=== PATIENT | female | born 1950 | race Caucasian/White ===

== ENCOUNTER → 2016-12-02 | Outpatient (CLI) | payer OTHER, MEDICAID ==
[2015-12-15 18:18] VITALS: BP 149/80
[2016-12-02 16:01] LABS: IRON 56 ug/dL (50-175); TOTAL IRON BINDING CAPACITY 379 ug/dL (250-450); TRANSFERRIN 282 mg/dL (202-364)
[2016-12-04 21:24] LABS: HEPATITIS A ANTIBODY IGM Negative (Negative)
[2016-12-05 06:12] LABS: ANTI-NUCLEAR ANTIBODY TEST None Detected (None Detected); HEPATITIS B CORE IGM Negative (Negative); HEPATITIS B SURFACE ANTIGEN Negative (Negative)
[2016-12-08 06:29] LABS: COPPER LEVEL 114 ug/dL (80-155)
== END ==
LOC: LAB 14:38
PROVIDERS: ATTEND Internal Medicine Gastroenterology
DX: K76.0 Fatty (change of) liver, not elsewhere classified (principal); R11.0 Nausea; R10.13 Epigastric pain
CPT/HCPCS: 36415; 80074; 82103; 82390; 82525; 82728; 83540; 83550; 84466; 86256; 86308

== ENCOUNTER 2016-12-18 07:47 | Day surgery (SDC) | payer OTHER, MEDICAID ==
[2016-12-18] MEDS ORDERED: D5 LR 1000 ML 1,000 ML IV ONE (08:17)
[2016-12-18] MEDS ORDERED: ZOFRAN INJ 4 MG VIAL ONE (10:14)
[2016-12-18] MEDS ORDERED: DIPRIVAN VIAL 20 ML ONE (10:14)
[2016-12-18 10:50] VITALS: BP 127/69
== END 2016-12-18 10:58 | disposition home or self-care (01) ==
LOC: SURG1 07:47
PROVIDERS: ATTEND Internal Medicine Gastroenterology
PROC: 0DB68ZX Excision of Stomach, Via Natural or Artificial Opening Endoscopic, Diagnostic (ICD-10-PCS; principal; 2016-12-18 09:30)
PROC: 0DB88ZX Excision of Small Intestine, Via Natural or Artificial Opening Endoscopic, Diagnostic (ICD-10-PCS; principal; 2016-12-18 09:30)
PROC: 0DJ08ZZ Inspection of Upper Intestinal Tract, Via Natural or Artificial Opening Endoscopic (ICD-10-PCS; principal; 2016-12-18 09:30)
PROC: 0D757ZZ Dilation of Esophagus, Via Natural or Artificial Opening (ICD-10-PCS; principal; 2016-12-18 09:30)
DX: R13.19 Other dysphagia (principal); R10.13 Epigastric pain; K21.9 Gastro-esophageal reflux disease without esophagitis; K22.2 Esophageal obstruction; K44.9 Diaphragmatic hernia without obstruction or gangrene; K25.9 Gastric ulcer, unspecified as acute or chronic, without hemorrhage or perforation
CPT/HCPCS: A4217; J2405; J3490; J7120

== ENCOUNTER 2017-09-09 08:48 | Emergency (ER) | payer OTHER, MEDICAID ==
[2017-09-09 08:50] VITALS: BMI 35.6
[2017-09-09 08:51] VITALS: BP 164/85
[2017-09-09] MEDS ORDERED: TORADOL 60 MG VIAL IM ONE (09:23)
[2017-09-09] MEDS ORDERED: ZOFRAN INJ 4 MG VIAL IM ONE (09:23)
--- NOTE | 2017-09-09 09:26 | DR.HEADACH ---
HPI - Time Seen Time seen: 09:15 - Primary Care Physician Primary Care Physician: ELHAM - HPI Comment HPI Comment: VOMITED TODAY TIMES ONE AT 05:00 AM. TAKING HYDROCORDONE FOR THE PAIN BUT STILL HAVING SEVERE HEADACHE. DENIES SINUS CONGESTION BUT HAVE HORSENESS. NO FEVER. HISTORY MIGRAINE HEADACHE. - Complaint/Symptoms Chief Complaint Doctors Comments: HEADACHE WITH NAUSEA TIMES 2 DAYS. Chief Complaint:: PT. C/O HEADACHE X 2 DAYS AND NAUSEA. Pertinent History: Dizziness/Weakness, Headache, Nausea/Vomitting - Reviewed Nurses Notes Reviewed: Yes - Source History Provided: Patient - Mode of Arrival Mode of Arrival: Ambulatory - Timing Onset of Chief Complaint: 09/07/17 - Duration Since Onset: Constant - Location Headache Location: Temporal - Quality Quality: Throbbing, Sharp - Severity Headache Severity: Moderate - Context Headache Onset Circumstances: Spontaneous History of: Hypertension Prior Work Up: None - Modifying Factors Improves With: Nothing - Associated Signs and Symptoms Associated Symptoms: Nausea, Vomitting PMH - PMH Past Medical History: Yes Past Medical History: Anxiety, Arthritis, Diabetes, Migraines, Headaches, Hypertension Past Surgical History: Yes Surgical History: Abdominal Surgery, Appendectomy, Hysterectomy, Ortho Surgery - Family History History of Family Medical Conditions: Yes Family Medical History: Diabetes Mellitus, Cancer, Heart Failure, Hypertension - Social History Does patient currently use any type of tobacco product: No Have you used tobacco products in the last 12 months: No Type of Tobacco Use: None Does any household member use tobacco: No Alcohol Use: None Do you use any recreational Drugs:: No Lives With: Spouse Lives Where: Home - infectious screening In the last 2 months have you had wt loss of >10#?: NO Have you had fever, night sweats or hemotysis?: No Have you traveled outside the country in the last 6 months?: No Isolation: Standard ROS - Review of Systems Constitutional: No Symptoms Reported Eyes: Photophobia ENTM: No Symptoms Reported (HORSENESS) Respiratoy: No Symptoms Reported Cardiovascular: No Symptoms Reported Gastrointestinal/Abdominal: Nausea, Vomiting Genitourinary: No Symptoms Reported Neurological: Headache Musculoskeletal: No Symptoms Reported Integumentary: No Symptoms Reported Hematologic/Lymphatic: No Symptoms Reported Endocrine: No Symptoms Reported All Other Systems: Reviewed and Negative PE - Vital Signs Vitals: Temperature 97 F Pulse Rate 84 Respiratory Rate 16 Blood Pressure 164/85 O2 Sat by Pulse Oximetry 96 - General Limitations: No Limitations General Appearance: Alert - Head Head Exam: Normal Inspection - Eyes Eye exam: Normal Appearance, PERRL, EOMI. negative: Scleral Icterus, Conjunctival Injection Eyelids: Normal Inspection: Bilateral Pupils: Regular, Round: Bilateral, Reactive: Bilateral Sclera/Conjunctival: Normal Inspection: Bilateral - ENT ENT Exam: Normal External Ear Exam External Ear Exam: Normal External Inspection TM/Canal Exam: Bilateral Normal Nose Exam: Normal Nose Exam Mouth Exam: Normal Inspection Teeth Exam: Dental Caries Throat Exam: Normal Inspection - Neck Neck Exam: Trachea Midline - Chest Chest Inspection: Symmetric Chest Wall Rise - Respiratory Respiratory Exam: Normal Lung Sounds Bilat Respiratory Exam: Bilateral Clear to Auscultation - Cardiovascular Cardiovascular Exam: Regular Rate, Normal Rhythm, Normal Heart Sounds - Abdominal Exam Abdominal Exam: Normal Bowel Sounds, Soft. negative: Tenderness - Extremities Extremities Exam: Normal Inspection - Back Back Exam: Normal Inspection - Neurologic Neurological Exam: Alert, Oriented X3, CN II-XII Intact, Normal Gait, Reflexes Normal. negative: Motor Sensory Deficit - Psychiatric Psychiatric Exam: Anxious - Skin Skin Exam: Normal Color MDM - Differential Diagnosis Differential Diagnosis: Considerations may include:: Migraine, Hypertensive, CVA , Mass Lesion, Sinusitis Course - Treatment Treatment: SEE ORDERS. - Reevaluation 1st: Improved (IM PAIN MED IN ED.) - Education/Counseling Education/Counseling: Patient, Education Educated On: Diagnosis ROR - XRAY XRAY Interpreted by: Radiologist XRAY Findings: REPORT DISCUSS WITH PATIENT. - Diagnosis Discharge Problem: Migraine - Discharge Plan Disposition: 01 HOME, SELF-CARE Condition: Stable - Follow ups/Referrals Follow ups/Referrals: SIDDHARTH LIZARRAGA V [Primary Care Provider] - 2 days - Instructions Instructions: Migraine Headache, [id number] Additional Instructions: RETURN TO ED IF WORSE.
[2017-09-09] MEDS ORDERED: TORADOL 60 MG VIAL ONE (09:29)
[2017-09-09] MEDS ORDERED: ZOFRAN INJ 4 MG VIAL ONE (09:29)
--- NOTE | 2017-09-09 09:53 | CT ---
HISTORY: Right temporal headache Study: CT head without contrast Comparison: 09/13/2013 report Technique: Axial noncontrast images with coronal and sagittal reformats. Dose reduction procedures we re used with mA/kv adjusted for body size. Findings: The ventricles are normal in size shape and position. There is some age-related cortical atrophy pres ent. There is no evidence for recent or remote CVA, hemorrhage, mass lesion, or extra-axial fluid col lection. The visualized sinuses are clear. The calvarium is intact. IMPRESSION: No acute intracranial abnormality Age-related cortical atrophy Reported By:
[2017-09-09] MEDS ORDERED: PHENERGAN INJ 25 MG IM ONE (10:14)
[2017-09-09] MEDS ORDERED: DEMEROL INJ IM ONE (10:14)
[2017-09-09] MEDS ORDERED: DEMEROL INJ ONE (10:23)
[2017-09-09] MEDS ORDERED: PHENERGAN INJ 25 MG ONE (10:23)
== END 2017-09-09 10:46 | disposition home or self-care (01) ==
LOC: ER 09:02
DX: G43.909 Migraine, unspecified, not intractable, without status migrainosus (principal)
CPT/HCPCS: 70450; 96372; 99282; J1885; J2175; J2405; J2550

== ENCOUNTER 2017-12-08 11:50 | Emergency (ER) | payer OTHER, MEDICAID ==
[2017-12-08 11:53] VITALS: BP 129/61; BMI 34.9
[2017-12-08] MEDS ORDERED: DEMEROL INJ IM ONE (12:22)
[2017-12-08] MEDS ORDERED: PHENERGAN INJ 25 MG IM ONE (12:23)
--- NOTE | 2017-12-08 12:24 | DR.HEADACH ---
HPI - Primary Care Physician Primary Care Physician: ELHAM - Complaint/Symptoms Chief Complaint:: PT. C/O MIGRAINE HEADACHE X 2 DAYS WELL NAUSEA. - Source History Provided: Patient - Mode of Arrival Mode of Arrival: Ambulatory - Timing Onset of Chief Complaint: 12/06/17 PMH - PMH Past Medical History: Yes Past Medical History: Anxiety, Arthritis, Diabetes, Migraines, Headaches, Hypertension Past Surgical History: Yes Surgical History: Abdominal Surgery, Appendectomy, Hysterectomy, Ortho Surgery - Family History History of Family Medical Conditions: Yes Family Medical History: Diabetes Mellitus, Cancer, Heart Failure, Hypertension - Social History Does patient currently use any type of tobacco product: No Have you used tobacco products in the last 12 months: No Type of Tobacco Use: None Does any household member use tobacco: No Alcohol Use: None Do you use any recreational Drugs:: No Lives With: Spouse Lives Where: Home - infectious screening In the last 2 months have you had wt loss of >10#?: NO Have you had fever, night sweats or hemotysis?: No Have you traveled outside the country in the last 6 months?: No Isolation: Standard PE - Vital Signs Vitals: Temperature 96.9 F Pulse Rate 80 Respiratory Rate 17 Blood Pressure 129/61 O2 Sat by Pulse Oximetry 99 - Diagnosis Discharge Problem: Migraine Qualifiers: Migraine type: unspecified Status migrainosus presence: without status migrainosus Intractability: intractable Qualified Code(s): G43.919 - Migraine, unspecified, intractable, without status migrainosus - Discharge Plan Condition: Stable - Follow ups/Referrals Follow ups/Referrals: SIDDHARTH LIZARRAGA V [Primary Care Provider] - 2 days - Instructions Instructions: Migraine Headache, [id number] Additional Instructions: RETURN TO ED IF WORSE. CONTINUE MEDS AT HOME.
[2017-12-08] MEDS ORDERED: DEMEROL INJ ONE (12:32)
[2017-12-08] MEDS ORDERED: PHENERGAN INJ 25 MG ONE (12:32)
== END 2017-12-08 12:52 | disposition home or self-care (01) ==
LOC: ER 11:59
DX: G43.919 Migraine, unspecified, intractable, without status migrainosus (principal)
CPT/HCPCS: 96372; 99282; J2175; J2550

== ENCOUNTER 2024-01-25 12:07 | Observation (INO) ==
--- NOTE | 2024-01-25 12:20 | EKG ---
Test Reason : poss stroke Blood Pressure : */* mmHG Vent. Rate : 89 BPM Atrial Rate : 89 BPM P-R Int : 192 ms QRS Dur : 94 ms QT Int : 400 ms P-R-T Axes : 49 -36 38 degrees QTc Int : 486 ms Normal sinus rhythm Left axis deviation Incomplete right bundle branch block Cannot rule out Anterior infarct , age undetermined Abnormal ECG No previous ECGs available Confirmed by Rivera Blanc MD ([id number]) on 01/26/2024 7:10:58 AM Referred By: Confirmed By: Rivera Blanc MD
--- NOTE | 2024-01-25 12:44 | CT ---
EXAM:BRAIN W/O CONHISTORY:POSSIBLE STROKE;COMPARISON:None.TECHNIQUE:Axial non-contrast images of the head were obtained with coronal and sagittal reformats provided.Radiation dose: 817.54 mGy-cm total DLPFINDINGS:No abnormal areas of acute attenuation in the brain parenchyma.Calixto-white differentiation remains intact.No intracranial, extra-axial, fluid collection.No hemorrhage.Periventricular chronic microvascular disease.No mass, mass effect or midline shift.Age related brain parenchymal global atrophy.No ventriculomegaly.No acute fracture.Sinuses are well aerated.Mastoid air cells are well aerated.Globes and intra-orbital contents are unremarkable.IMPRESSION:No acute intracranial abnormality identified.THIS IS AN ELECTRONICALLY VERIFIED FINAL REPORT01/25/2024 12:39 PM - Electronically signed by Ebenezer Sweet MD
--- NOTE | 2024-01-25 12:53 | DR.AMS ---
HPI Time Seen Time Seen by Provider: 01/25/24 12:52 PCP Primary Care Physician: Jayson Lu Complaint Chief Complaint:: Pt states that she has "been feeling funny" since around 10 am today. States that she feels weak and confused. Pt is able to answer questions appropriatley. Pt has bilateral night assistant strength. Pupils are perrla. Otbs is 99 in triage. Pt also states that she had left arm tingling and a left sided headache Self Treatment fo Chief Complaint: none COVID-19 Coronavirus risk:travel/contact w/high risk person: No Has patient experienced Coronavirus symptoms: No Source History Provided: Patient Mode of Arrival Mode of Arrival: Wheelchair Timing Onset of Chief Complaint: 01/25/24 PMH PMH Past Medical History: Yes Past Medical History: Anxiety, Arthritis, Diabetes, Migraines, Headaches, H ypertension and Sleep Apnea Past Surgical History: Yes Surgical History: Abdominal Surgery, Appendectomy, Cholecystectomy, Hysterectomy and Ortho Surgery Family History History of Family Medical Conditions: Yes Family Medical History: Cancer Social History Does patient currently use any type of tobacco product: No Have you used tobacco products in the last 12 months: No Type of Tobacco Use: None Does any household member use tobacco: No Alcohol Use: None Do you use any recreational Drugs:: No Lives With: Alone Lives Where: Home Travel Risk Coronavirus risk:travel/contact w/high risk person: No Has patient experienced Coronavirus symptoms: No Infectious screening In the last 2 months have you had wt loss of >10#?: NO Have you had fever, night sweats or hemotysis?: No Have you traveled outside the country in the last 6 months?: No Isolation: Standard PE Vitals Vital Signs: Temp Pulse Resp BP Pulse Ox O2 Del Method 01/25/24 16:00 91 H 18 97 01/25/24 16:00 16701/25/24 16:00 16701/25/24 16:00 01/25/24 15:52 88 21 96 01/25/24 15:52 188/86 01/25/24 15:52 188/86 01/25/24 15:45 90 24 95 01/25/24 15:30 192/79 01/25/24 15:30 87 21 94 L 01/25/24 15:15 88 25 H 95 01/25/24 15:00 177/77 01/25/24 15:00 89 22 97 01/25/24 14:45 85 23 95 01/25/24 14:30 187/77 01/25/24 14:30 88 21 96 01/25/24 14:15 88 26 H 95 01/25/24 14:03 88 27 H 95 01/25/24 14:03 188/01/25/24 14:03 188/01/25/24 14:03 188/01/25/24 14:00 92 H 26 H 96 01/25/24 14:03 23 01/25/24 13:45 90 23 95 01/25/24 13:31 89 18 95 01/25/24 13:31 175/73 01/25/24 13:30 88 14 96 01/25/24 13:15 87 19 96 01/25/24 13:00 86 20 96 01/25/24 13:00 187/01/25/24 12:45 86 18 96 01/25/24 12:33 85 19 97 01/25/24 12:07 99.1 F 94 H 22 190/86 98 Room Air ROR Labs Reviewed 01/25/24 13:15 01/25/24 13:15 Laboratory: WBC 9.7 X10^3/uL (3.6-10.0) 01/25/24 13:15 RBC 3.53 X10^6/uL (3.5-5.4) 01/25/24 13:15 Hgb 11.6 g/dL (12.0-16.0) L 01/25/24 13:15 Hct 34.5 % (36.0-47.0) L 01/25/24 13:15 MCV 97.9 fL (80.0-100.0) 01/25/24 13:15 MCH 32.9 pg (27.0-34.0) 01/25/24 13:15 MCHC 33.6 g/dL (33.0-35.0) 01/25/24 13:15 RDW 14.4 % (11.6-16.5) 01/25/24 13:15 Plt Count 192 X10^3/uL (150.0-450.0) 01/25/24 13:15 MPV 8.5 fL (7.4-11.0) 01/25/24 13:15 Neut % (Auto) 64.9 % (42.0-75.0) 01/25/24 13:15 Lymph % (Auto) 28.6 % (21.0-51.0) 01/25/24 13:15 [place] % (Auto) 5.6 % (0.0-13.0) 01/25/24 13:15 Eos % (Auto) 0.2 % (0.9-2.9) L 01/25/24 13:15 Baso % (Auto) 0.7 % (0.2-1.0) 01/25/24 13:15 Neut # (Auto) 6.3 x10^3/uL (2.2-4.8) H 01/25/24 13:15 Lymph # (Auto) 2.8 X10^3/uL (1.3-2.9) 01/25/24 13:15 [place] # (Auto) 0.5 x10^3/uL (0.3-0.8) 01/25/24 13:15 Eos # (Auto) 0.0 x10^3/uL (0.0-0.2) 01/25/24 13:15 Baso # (Auto) 0.1 X10^3/uL (0.0-0.1) 01/25/24 13:15 Absolute Nucleated RBC 0.0 /100WBC 01/25/24 13:15 Sodium 142 mmol/L (136-145) 01/25/24 13:15 Corrected Sodium TNP 01/25/24 13:15 Potassium 4.4 mmol/L (3.5-5.1) 01/25/24 13:15 Chloride 105 mmol/L (98-107) 01/25/24 13:15 Carbon Dioxide 29.3 mmol/L (21-32) 01/25/24 13:15 BUN 18 mg/dL (7-18) 01/25/24 13:15 Creatinine 1.80 mg/dL (0.55-1.02) H 01/25/24 13:15 Est GFR (MDRD) Af Amer 36 (>60) L 01/25/24 13:15 Est GFR (MDRD) Non-Af 29 (>60) L 01/25/24 13:15 Glucose 90 mg/dL (65-99) 01/25/24 13:15 Calcium 9.2 mg/dL (8.5-10.1) 01/25/24 13:15 Opioid Opioid Risk Tool Age (Aniceto box if 16-45): No History of Preadolescent Sexual Abuse: No Total: 0 Total Score Risk Category: Low Risk Copyright: Tre CASTELLANO predicting aberrant behaviors Discharge Plan Diagnosis Discharge Problem: Acute CVA (cerebrovascular accident), Brain TIA, Lacunar stroke, Migraine Discharge Plan Patient Disposition: 09 ADMITTED INPATIENT Condition: Stable Discharge Comment: room 203 Orders to Discharge Patient Discharge Orders: Transfer (Routine); Ordered 01/25/24 Ordered By: BRENDA MORENO
[2024-01-25 13:27] LABS: BASOPHILS # (AUTO) 0.1 X10^3/uL (0.0-0.1); BASOPHILS % (AUTO) 0.7 % (0.2-1.0); EOSINOPHILS % (AUTO) 0.2 % (0.9-2.9); HEMATOCRIT 34.5 % (36.0-47.0); HEMOGLOBIN 11.6 g/dL (12.0-16.0); LYMPHOCYTES # (AUTO) 2.8 X10^3/uL (1.3-2.9); LYMPHOCYTES % (AUTO) 28.6 % (21.0-51.0); MEAN CORPUSCULAR HEMOGLOBIN 32.9 pg (27.0-34.0); MEAN CORPUSCULAR HGB CONC 33.6 g/dL (33.0-35.0); MEAN CORPUSCULAR VOLUME 97.9 fL (80.0-100.0); MEAN PLATELET VOLUME 8.5 fL (7.4-11.0); MONOCYTES # (AUTO) 0.5 x10^3/uL (0.3-0.8); MONOCYTES % (AUTO) 5.6 % (0.0-13.0); NEUTROPHILS # (AUTO) 6.3 x10^3/uL (2.2-4.8); NEUTROPHILS % (AUTO) 64.9 % (42.0-75.0); PLATELET COUNT 192 X10^3/uL (150.0-450.0); RED BLOOD COUNT 3.53 X10^6/uL (3.5-5.4); RED CELL DISTRIBUTION WIDTH 14.4 % (11.6-16.5); WHITE BLOOD COUNT 9.7 X10^3/uL (3.6-10.0)
[2024-01-25 13:37] LABS: BLOOD UREA NITROGEN 18 mg/dL (7-18); CALCIUM 9.2 mg/dL (8.5-10.1); CARBON DIOXIDE 29.3 mmol/L (21-32); CHLORIDE 105 mmol/L (98-107); GLUCOSE 90 mg/dL (65-99); POTASSIUM 4.4 mmol/L (3.5-5.1); SODIUM 142 mmol/L (136-145); eGFR NON BLACK RACES 29 (>60)
[2024-01-25] MEDS: TORADOL 15 MG VIAL IVP ONE (14:03)
--- NOTE | 2024-01-25 14:32 | RAD ---
EXAM:CHEST, 1 VIEWHISTORY:altered mental status;COMPARISON:NoneFINDINGS:The cardiomediastinal silhouette is normal in size.No acute airspace disease. No pneumothorax or effusion.No acute osseous abnormality.IMPRESSION:No acute cardiopulmonary disease.THIS IS AN ELECTRONICALLY VERIFIED FINAL REPORT01/25/2024 2:29 PM - Electronically signed by Romaine Ac MD
--- NOTE | 2024-01-25 14:45 | DR.CONSULT ---
CONSULT Consultation for Day of: Date: 01/25/24 Allergies Allergies Allergy/AdvReac Type Severity Reaction Status Date / Time levofloxacin [From Levaquin] Allergy Unknown Verified 08/07/22 08:58 meperidine [From Demerol] AdvReac Mild NAUSEA Verified 08/07/22 08:58 History of Present Illness History of Present Illness: [facility] Patient Name: Camila Liriano Date of : 1950 Identification Number: Date of Service: 01/25/2024 12:16:01 Diagnosis: I63.89 - Cerebrovascular accident (CVA) due to other mechanism ([facility]) Impression: TIA versus pure sensory lacunar stroke versus migraine Patient's symptoms are very mild and nondisabling at this time and for this reason I would not recommend IV thrombolytic therapy I would recommend however a Plavix loading dose of 300 mg once and begin a 21- day course of aspirin 81 mg and Plavix 75 mg daily Statin Patient will need an MRI of the brain without contrast Routine vessel studies with MRA head and neck is reasonable as well for carotid duplex studies Our recommendations are outlined below. Recommendations: Stroke/Telemetry Floor Neuro Checks Bedside Swallow Eval DVT Prophylaxis IV Fluids, Normal Saline Head of Bed 30 Degrees Euglycemia and Avoid Hyperthermia (PRN Acetaminophen) Bolus with Clopidogrel 300 mg bolus x1 and initiate dual antiplatelet therapy with Aspirin 81 mg daily and Clopidogrel 75 mg daily Antihypertensives PRN if Blood pressure is greater than 220/120 or there is a concern for End organ damage/contraindications for permissive HTN. If blood pressure is greater than 220/120 give labetalol PO or IV or Vasotec IV with a goal of 15% reduction in BP during the first 24 hours. Sign Out: Discussed with Emergency Department Provider Advanced Imaging: Advanced Imaging Deferred because: Non-disabling symptoms as verified by the patient; no cortical signs so not consistent with LVO Metrics: Last Known Well: 01/25/2024 10:00:00 [facility] Notification Time: 01/25/2024 12:16:00 Arrival Time: 01/25/2024 12:07:00 Stamp Time: 01/25/2024 12:16:01 Initial Response Time: 01/25/2024 12:17:21 Symptoms: Headache. Initial patient interaction: 01/25/2024 12:19:21 NIHSS Assessment Completed: 01/25/2024 12:22:17 Patient is not a candidate for Thrombolytic. Thrombolytic Medical Decision: 01/25/2024 12:22:21 Patient was not deemed candidate for Thrombolytic because of following reasons: No disabling symptoms. CT head showed no acute hemorrhage or acute core infarct. Primary Provider Notified of Diagnostic Impression and Management Plan on: 01/25/2024 12:36:27 History of Present Illness: Patient is a 73 year old Female. Patient was brought by private transportation with symptoms of Headache. 73-year-old female with a history of prior TIAs with a past medical history significant for hyperlipidemia hypertension review of her records though she does not appear to be on any antiplatelet therapy Last known normal time she states is between 10 and 1030 earlier today when she then developed a left-sided headache and then left-sided numbness and tingling On arrival she still has a dull headache she states no photophobia no phonophobia no nausea vomiting no visual auras preceding the onset of her headache Past Medical History: Hypertension Hyperlipidemia Othere PMH: TIA's Medications: No Anticoagulant use No Antiplatelet use Reviewed EMR for current medications Allergies: Reviewed Social History: Drug Use: No Family History: There is no family history of premature cerebrovascular disease pertinent to this consultation ROS : 14 Points Review of Systems was performed and was negative except mentioned in HPI. Past Surgical History: There Is No Surgical History Contributory To Todays Visit Examination: BP(188/78), Pulse(88), Blood Glucose(303) 1A: Level of Consciousness - Alert; keenly responsive + 0 1B: Ask Month and Age - Both Questions Right + 0 1C: Blink Eyes & Squeeze Hands - Performs Both Tasks + 0 2: Test Horizontal Extraocular Movements - Normal + 0 3: Test Visual Gonzalez - No Visual Loss + 0 4: Test Facial Palsy (Use Grimace if Obtunded) - Normal symmetry + 0 5A: Test Left Arm Motor Drift - No Drift for 10 Seconds + 0 5B: Test Right Arm Motor Drift - No Drift for 10 Seconds + 0 6A: Test Left Leg Motor Drift - No Drift for 5 Seconds + 0 6B: Test Right Leg Motor Drift - No Drift for 5 Seconds + 0 7: Test Limb Ataxia (FNF/Heel-David) - No Ataxia + 0 8: Test Sensation - Mild-Moderate Loss: Less Sharp/More Dull + 1 9: Test Language/Aphasia - Normal; No aphasia + 0 10: Test Dysarthria - Normal + 0 11: Test Extinction/Inattention - No abnormality + 0 NIHSS Score: 1 Pre-Morbid Modified Ajith Scale: 0 Points = No symptoms at all Spoke with : ED DR Patient/Family was informed the Neurology Consult would occur via TeleHealth consult by way of interactive audio and video telecommunications and consented to receiving care in this manner. Patient is being evaluated for possible acute neurologic impairment and high probability of imminent or life-threatening deterioration. I spent total of 35 minutes providing care to this patient, including time for face to face visit via telemedicine, review of medical records, imaging studies and discussion of findings with providers, the patient and/or family. Dr Ebenezer العراقي [facility] For Inpatient follow-up with [facility] physician please call [facility] . This is not an outpatient service. Post hospital discharge, please contact hospital directly. Please call or reconsult our service if there are any clinical or diagnostic changes. Past Medical History Past Medical History: Anxiety, Arthritis, Diabetes, Migraines, Headaches, H ypertension and Sleep Apnea Past Surgical History Surgical History: Abdominal Surgery, Appendectomy, Cholecystectomy, Hysterectomy and Ortho Surgery Family History Family Medical History: Cancer Social History Does patient currently use any type of tobacco product: No Have you used tobacco products in the last 12 months: No Type of Tobacco Use: None Does any household member use tobacco: No Alcohol Use: None Medications Home Medications: levofloxacin [From Levaquin] Allergy (Unknown, Verified 08/07/22 08:58) meperidine [From Demerol] Adverse Reaction (Mild, Verified 08/07/22 08:58) NAUSEA CONTINUE taking the following medications atorvastatin 10 mg tablet 10 mg PO QPM 01/25/24 [History] bupropion HCl 75 mg tablet 75 mg PO BID 01/25/24 [History] celecoxib 200 mg capsule 200 mg PO QDAY 01/25/24 [History] dapagliflozin propanediol 10 mg tablet (Farxiga) 10 mg PO QDAY 01/25/24 [History] escitalopram oxalate 10 mg tablet 10 mg PO QPM 01/25/24 [History] finerenone 10 mg tablet (Kerendia) 10 mg QDAY 01/25/24 [History] fluconazole 150 mg tablet 150 mg PO QWEEK 01/25/24 [History] hydroxychloroquine 200 mg tablet 200 mg PO QDAY 01/25/24 [History] metoclopramide HCl 10 mg tablet 10 mg PO QID 01/25/24 [History] mirtazapine 7.5 mg tablet 7.5 mg PO QHS 01/25/24 [History] olmesartan 40 mg tablet 40 mg PO QDAY 01/25/24 [History] Physical Exam Vital Signs: Vital Signs Temperature 99.1 F Pulse Rate 88 Pulse Rate 88 Pulse Rate 92 Pulse Rate 90 Pulse Rate 89 Pulse Rate 88 Pulse Rate 87 Pulse Rate 86 Pulse Rate 86 Pulse Rate 85 Pulse Rate 94 Respiratory Rate 26 Respiratory Rate 27 Respiratory Rate 23 Respiratory Rate 26 Respiratory Rate 23 Respiratory Rate 18 Respiratory Rate 14 Respiratory Rate 19 Respiratory Rate 20 Respiratory Rate 18 Respiratory Rate 19 Respiratory Rate 22 Blood Pressure 188/78 Blood Pressure 188/78 Blood Pressure 188/78 Blood Pressure 175/73 Blood Pressure 187/76 Blood Pressure 190/86 O2 Sat by Pulse Oximetry 95 O2 Sat by Pulse Oximetry 95 O2 Sat by Pulse Oximetry 96 O2 Sat by Pulse Oximetry 95 O2 Sat by Pulse Oximetry 95 O2 Sat by Pulse Oximetry 96 O2 Sat by Pulse Oximetry 96 O2 Sat by Pulse Oximetry 96 O2 Sat by Pulse Oximetry 96 O2 Sat by Pulse Oximetry 97 O2 Sat by Pulse Oximetry 98
[2024-01-25] MEDS: PLAVIX PO ONE (15:35)
[2024-01-25] MEDS: APRESOLINE INJ 20 MG VIAL IVP ONE (15:54)
[2024-01-25] MEDS: TORADOL 15 MG VIAL ONE (16:40)
[2024-01-25] MEDS: NS 1,000 ML IV 1,000 ML IV SCH (17:17)
[2024-01-25 17:54] VITALS: BMI 24.3
[2024-01-25 19:24] LABS: BILIRUBIN,URINE NEGATIVE (NEGATIVE); BLOOD/HEMOGLOBIN,URINE NEGATIVE (NEGATIVE); GLUCOSE, URINE 4+ (NEGATIVE); KETONES,URINE NEGATIVE (NEGATIVE); LEUKOCYTE ESTERASE ,URINE NEGATIVE (NEGATIVE); NITRITES,URINE NEGATIVE (NEGATIVE); PROTEIN,URINE 1+ (NEGATIVE); UROBILINOGEN,URINE NORMAL (NORMAL)
[2024-01-25 19:25] LABS: APPEARANCE,URINE CLEAR (CLEAR); COLOR,URINE YELLOW (YELLOW)
[2024-01-25 19:33] LABS: BACTERIA,URINE NEGATIVE /HPF (NEGATIVE); RBC,URINE 0-2 /HPF (0-3); SQUAMOUS EPITHELIAL CELL,UR RARE /HPF (NEGATIVE)
[2024-01-26] MEDS: VALIUM INJ IVP ONE (04:43)
[2024-01-26] MEDS: LIPITOR TAB 10 MG PO SCH (04:44)
[2024-01-26 04:50] LABS: BLOOD UREA NITROGEN 19 mg/dL (7-18); CHLORIDE 105 mmol/L (98-107); CREATININE 1.93 mg/dL (0.55-1.02); GLUCOSE 78 mg/dL (65-99); POTASSIUM 4.3 mmol/L (3.5-5.1); SODIUM 143 mmol/L (136-145); eGFR NON BLACK RACES 27 (>60)
[2024-01-26 04:56] LABS: MAGNESIUM 1.4 mg/dL (2.0-2.9)
[2024-01-26 05:02] LABS: BASOPHILS # (AUTO) 0.1 X10^3/uL (0.0-0.1); BASOPHILS % (AUTO) 0.7 % (0.2-1.0); EOSINOPHILS % (AUTO) 0.5 % (0.9-2.9); HEMATOCRIT 31.5 % (36.0-47.0); HEMOGLOBIN 10.8 g/dL (12.0-16.0); LYMPHOCYTES # (AUTO) 3.5 X10^3/uL (1.3-2.9); LYMPHOCYTES % (AUTO) 40.5 % (21.0-51.0); MEAN CORPUSCULAR HEMOGLOBIN 33.5 pg (27.0-34.0); MEAN CORPUSCULAR HGB CONC 34.5 g/dL (33.0-35.0); MEAN CORPUSCULAR VOLUME 97.1 fL (80.0-100.0); MEAN PLATELET VOLUME 8.7 fL (7.4-11.0); MONOCYTES # (AUTO) 0.6 x10^3/uL (0.3-0.8); MONOCYTES % (AUTO) 6.9 % (0.0-13.0); NEUTROPHILS # (AUTO) 4.4 x10^3/uL (2.2-4.8); NEUTROPHILS % (AUTO) 51.4 % (42.0-75.0); PLATELET COUNT 165 X10^3/uL (150.0-450.0); RED BLOOD COUNT 3.24 X10^6/uL (3.5-5.4); RED CELL DISTRIBUTION WIDTH 14.5 % (11.6-16.5); WHITE BLOOD COUNT 8.6 X10^3/uL (3.6-10.0)
[2024-01-26] MEDS ORDERED: CONSULT PHARMACY - POTASSIUM & MAGNESIUM XX SCH (07:00)
[2024-01-26] MEDS ORDERED: ASPIRIN EC 81 MG PO ONE (09:00)
[2024-01-26] MEDS ORDERED: NS 500 ML IV 500 ML IV ONE (09:14)
[2024-01-26] MEDS: MAG-OX TAB PO SCH (09:29)
[2024-01-26] MEDS: NS 500 ML IV 500 ML IV ONE (09:29)
[2024-01-26] MEDS: ASPIRIN EC 81 MG PO SCH (09:29)
[2024-01-26] MEDS: PLAVIX PO SCH (09:29)
[2024-01-26] MEDS: NS 1,000 ML IV 1,000 ML IV SCH (11:00)
[2024-01-26] MEDS ORDERED: NovoLIN R (or HumuLIN R) SUBCUT PRN (12:14)
--- NOTE | 2024-01-26 13:04 | DR.H&P ---
H&P History & Physical for Day of: H&P Date: 01/26/24 Chief Complaint Chief Complaint: Feeling funny and confused with bilateral arm tingling and left leg tingling and numbness. History of Present Illness History of Present Illness: This is a pleasant 73-year-old white female who presented to [facility] emergency department yesterday with a chief complaint of that "she has been feeling funny" since waking up around 10 AM yesterday. The patient states that she feels weak in her arms and left leg. She states that she is feeling confused and a hard time thinking. She has tingling in both of her upper extremities and left leg but not her right lower leg. Emergency department notes the patient has bilateral internal control consultant, normal. This morning the patient tells me that she had a right-sided temporal headache that has gotten better at this time. She is still having some tingling in both of her arms and left leg but it is much improved since yesterday. I have reviewed consultation with neurologist Dr. Mays more per telemetry through the emergency department. He has recommended a loading dose of clopidogrel 300 mg p.o. x 1 then 75 mg daily with aspirin 81 mg 1 p.o. daily x 21 days. He also recommended a statin, swallow study at the bedside, 15% reduction in blood pressure for the first 24 hours with IV labetalol or Vasotec. The patient's blood pressure is coming down in the 160s to 170s over 70s. We do not want her bring her blood pressure down to 4 and precipitated CVA. Will make her condition worse. We will continue to slowly bring her blood pressure down over days. She has been started on atorvastatin. Today we will plan on checking an MRI of her brain, we are currently unable to do CTA of her neck and brain arteries. Her creatinine is going up as well as her chest estimated GFR. We are going to bolus her with normal saline and recheck a BUN and creatinine later on this morning if it has improved and her GFR is elevated enough we will proceed with a CTA. I will also put an order for bilateral carotid duplex ultrasound. Past Medical History Past Medical History: Anxiety, Arthritis, Diabetes, Migraines, Headaches, Hypertension and Sleep Apnea Past Surgical History Surgical History: Cholecystectomy, Hysterectomy and Ortho Surgery Family History Family Medical History: [place] Social History Does patient currently use any type of tobacco product: No Have you used tobacco products in the last 12 months: No Type of Tobacco Use: None Does any household member use tobacco: No Alcohol Use: None Drug Use: None Medications Home Medications: Home Medications Medication Instructions Recorded Confirmed Type atorvastatin 10 mg tablet 10 mg PO QPM 01/25/24 01/25/24 History blood-glucose sensor (Dexcom G6 01/25/24 01/25/24 History Sensor device) bupropion HCl 75 mg tablet 75 mg PO BID 01/25/24 01/25/24 History celecoxib 200 mg capsule 200 mg PO QDAY 01/25/24 01/25/24 History dapagliflozin propanediol 10 mg 10 mg PO QDAY 01/25/24 01/25/24 History tablet (Farxiga) escitalopram oxalate 10 mg tablet 10 mg PO QPM 01/25/24 01/25/24 History finerenone 10 mg tablet (Kerendia) 10 mg QDAY 01/25/24 01/25/24 History fluconazole 150 mg tablet 150 mg PO QWEEK 01/25/24 01/25/24 History hydroxychloroquine 200 mg tablet 200 mg PO QDAY 01/25/24 01/25/24 History insulin pump cart,automated,BT 01/25/24 01/25/24 History (Omnipod 5 G6 Pods (Gen 5) subcutaneous cartridge) metoclopramide HCl 10 mg tablet 10 mg PO QID 01/25/24 01/25/24 History mirtazapine 7.5 mg tablet 7.5 mg PO QHS 01/25/24 01/25/24 History olmesartan 40 mg tablet 40 mg PO QDAY 01/25/24 01/25/24 History pantoprazole 20 mg tablet,delayed 20 mg PO BID 01/25/24 01/25/24 History release semaglutide 14 mg tablet (Rybelsus) 14 mg PO QDAY 01/25/24 01/25/24 History sodium bicarbonate 650 mg tablet 650 mg PO TID 01/25/24 01/25/24 History trazodone 100 mg tablet 100 mg PO QPM PRN 01/25/24 01/25/24 History Allergies Allergies Allergy/AdvReac Type Severity Reaction Status Date / Time levofloxacin [From Levaquin] Allergy Unknown Verified 08/07/22 08:58 meperidine [From Demerol] AdvReac Mild NAUSEA Verified 08/07/22 08:58 Labs 01/26/24 04:15 01/26/24 04:15 Labs: Laboratory WBC 8.6 X10^3/uL (3.6-10.0) 01/26/24 04:15 RBC 3.24 X10^6/uL (3.5-5.4) L 01/26/24 04:15 Hgb 10.8 g/dL (12.0-16.0) L 01/26/24 04:15 Hct 31.5 % (36.0-47.0) L 01/26/24 04:15 MCV 97.1 fL (80.0-100.0) 01/26/24 04:15 MCH 33.5 pg (27.0-34.0) 01/26/24 04:15 MCHC 34.5 g/dL (33.0-35.0) 01/26/24 04:15 RDW 14.5 % (11.6-16.5) 01/26/24 04:15 Plt Count 165 X10^3/uL (150.0-450.0) 01/26/24 04:15 MPV 8.7 fL (7.4-11.0) 01/26/24 04:15 Neut % (Auto) 51.4 % (42.0-75.0) 01/26/24 04:15 Lymph % (Auto) 40.5 % (21.0-51.0) 01/26/24 04:15 [place] % (Auto) 6.9 % (0.0-13.0) 01/26/24 04:15 Eos % (Auto) 0.5 % (0.9-2.9) L 01/26/24 04:15 Baso % (Auto) 0.7 % (0.2-1.0) 01/26/24 04:15 Neut # (Auto) 4.4 x10^3/uL (2.2-4.8) 01/26/24 04:15 Lymph # (Auto) 3.5 X10^3/uL (1.3-2.9) H 01/26/24 04:15 [place] # (Auto) 0.6 x10^3/uL (0.3-0.8) 01/26/24 04:15 Eos # (Auto) 0.0 x10^3/uL (0.0-0.2) 01/26/24 04:15 Baso # (Auto) 0.1 X10^3/uL (0.0-0.1) 01/26/24 04:15 Absolute Nucleated RBC 0.1 /100WBC 01/26/24 04:15 PT 14.9 SECONDS (11.8-14.3) 01/26/24 04:15 INR Target Range - 01/26/24 04:15 INR 1.20 (0.8-1.3) 01/26/24 04:15 APTT 27.1 SECONDS (22.9-36.5) 01/26/24 04:15 PTT Comment - 01/26/24 04:15 Sodium 143 mmol/L (136-145) 01/26/24 04:15 Corrected Sodium TNP 01/26/24 04:15 Potassium 4.3 mmol/L (3.5-5.1) 01/26/24 04:15 Chloride 105 mmol/L (98-107) 01/26/24 04:15 Carbon Dioxide 29.0 mmol/L (21-32) 01/26/24 04:15 BUN 19 mg/dL (7-18) H 01/26/24 04:15 Creatinine 1.93 mg/dL (0.55-1.02) H 01/26/24 04:15 Est GFR (MDRD) Af Amer 33 (>60) L 01/26/24 04:15 Est GFR (MDRD) Non-Af 27 (>60) L 01/26/24 04:15 Glucose 78 mg/dL (65-99) 01/26/24 04:15 Calcium 9.0 mg/dL (8.5-10.1) 01/26/24 04:15 Magnesium 1.4 mg/dL (2.0-2.9) L 01/26/24 04:15 Specimen Type Clean catch urine 01/25/24 19:15 Urine Color Yellow (YELLOW) 01/25/24 19:15 Urine Appearance Clear (CLEAR) 01/25/24 19:15 Urine pH 7.0 (5.0 - 8.0) 01/25/24 19:15 Ur Specific [place] 1.010 (1.000-1.030) 01/25/24 19:15 Urine Protein 1+ (NEGATIVE) 01/25/24 19:15 Urine Glucose (UA) 4+ (NEGATIVE) 01/25/24 19:15 Urine Ketones Negative (NEGATIVE) 01/25/24 19:15 Urine Blood Negative (NEGATIVE) 01/25/24 19:15 Urine Nitrite Negative (NEGATIVE) 01/25/24 19:15 Urine Bilirubin Negative (NEGATIVE) 01/25/24 19:15 Urine Urobilinogen Normal (NORMAL) 01/25/24 19:15 Ur Leukocyte Esterase Negative (NEGATIVE) 01/25/24 19:15 Urine RBC 0-2 /HPF (0-3) 01/25/24 19:15 Urine WBC 0-2 /HPF (0-5) 01/25/24 19:15 Ur Squamous Epith Cells Rare /HPF (NEGATIVE) 01/25/24 19:15 Urine Bacteria Negative /HPF (NEGATIVE) 01/25/24 19:15 Ur Culture Indicated? No/not indicated 01/25/24 19:15 Review of Systems Constitutional: Weakness Eyes: No Symptoms Reported ENT: No Symptoms Reported Respiratory: No Symptoms Reported Cardiovascular: No Symptoms Reported Gastrointestinal: No Symptoms Reported Genitourinary: No Symptoms Reported Musculoskeletal: No Symptoms Reported Skin: No Symptoms Reported Neurological: See HPI, Weakness, Numbness, Incoordination, Confusion and Other (Mild drooping of the corner of the patient's left mouth) Physical Exam Vital Signs: Vital Signs Temperature 97.1 F Pulse Rate [Brachial] 95 Respiratory Rate 20 Blood Pressure [Right Arm] 168/74 O2 Sat by Pulse Oximetry 97 Oriented: Normal, Time, Person and Place Eyes: Normal Ear: Normal Respiratory: Clear Throughout Cardiovascular: Normal Palpation: Normal Tenderness: Normal Skin: Normal Musculoskeletal: Normal, Motor Deficit (Symmetric bilateral upper extremity strength as well as bilateral lower muscle strength.) and Sensory Deficit (None) Psychiatric: Depression Mood Description: Calm Affect: Normal Speech Pattern: Clear and Appropriate; negative Unclear Assessment/Plan (1) Acute CVA (cerebrovascular accident): Narrative Support Text: The patient has been placed on cardiac monitoring, neurochecks every 2 hours and we have elevated the head of her bed to 30 degrees. Status: Acute Plan: 1. The patient has been loaded with Plavix 3 mg x 1 and continued on Plavix 75 mg 1 p.o. daily. 2. Continue aspirin 81 mg 1 p.o. daily. 3. Continue atorvastatin 10 mg 1 p.o. nightly 4. She is continuing IV hydralazine as needed for elevated blood pressure. 5. We will plan to switch her over to oral antihypertensives tomorrow. 6. Check bilateral carotid artery ultrasound 7. Check MRI brain 8. Check CTA neck and brain arteries once estimated GFR is within normal range to do it. 9. Check neurochecks every 2 hours Review H&P Reviewed: Yes Patient was examined?: Yes
[2024-01-26 13:07] LABS: BLOOD UREA NITROGEN 15 mg/dL (7-18); CALCIUM 8.4 mg/dL (8.5-10.1); CARBON DIOXIDE 25.6 mmol/L (21-32); CHLORIDE 108 mmol/L (98-107); CREATININE 1.73 mg/dL (0.55-1.02); GLUCOSE 100 mg/dL (65-99); POTASSIUM 4.1 mmol/L (3.5-5.1); SODIUM 141 mmol/L (136-145); eGFR NON BLACK RACES 31 (>60)
[2024-01-26 13:40] LABS: ALANINE AMINOTRANSFERASE 32 Units/L (12-78); ALBUMIN 3.5 g/dL (3.4-5.0); ALKALINE PHOSPHATASE 164 Units/L (46-116); ASPARTATE AMINO TRANSFERASE 34 Units/L (15-37); TOTAL PROTEIN 6.7 g/dL (6.4-8.2)
[2024-01-26] MEDS: WELLBUTRIN IR (PLAIN) PO SCH (15:53)
[2024-01-26] MEDS: LEXAPRO PO SCH (15:54)
--- NOTE | 2024-01-26 16:13 | VAS ---
EXAM:CAROTID USHISTORY:? cva; TIA/CVA SYMPTOMS, LUCUNA STROKECOMPARISON:None.TECHNIQUE:Grayscal e and color Doppler imaging of the bilateral carotid and vertebral artery systems with spectral waveform analysis. Stenotic assessment is based on NASCET criteria.FINDINGS:Mild plaque is identified in the bilateral carotid bulbs and proximal internal carotid arteries.Right: Distal CCA peak systolic velocity is 64 centimeters/second. ICA peak systolic velocity is 73 centimeters/second. The vertebral artery flow is antegrade. ICA to CCA ratio is 1.1.Left: Distal CCA peak systolic velocity is 60 centimeters/second. ICA peak systolic velocity is 88 centimeters/second. The vertebral artery flow is antegrade. The ICA to CCA ratio is 1.5.IMPRESSION:Right ICA stenosis is less than 50% based on NASCET criteria.Left ICA stenosis is less than 50% based on NASCET criteria.Bilateral vertebral arteries maintain an antegrade pattern of flow.Mild plaque is observed within the bilateral carotid bulbs and proximal ICA segments.THIS IS AN ELECTRONICALLY VERIFIED FINAL REPORT01/26/2024 4:07 PM - Electronically signed by Zack Khoury MD
[2024-01-26] MEDS: VALIUM PO ONE (16:30)
--- NOTE | 2024-01-26 17:32 | MRI ---
EXAM:BRAIN W/O CONHISTORY:? cva;COMPARISON:Noncontrast CT of the head from January 24TECHNIQUE:Multiplaner, multisequence MRI of the head is performed without IV contrast.FINDINGS:No evidence of restricted diffusion to indicate a recent infarction.No intracranial hemorrhage or extra-axial fluid collection. No mass effect, shift or cerebral edema. No suprasellar asymmetry is identified. The corpus callosum signal and morphology remain normal. The cerebellar tonsils are normal in positionAge-related cortical atrophy with associated ex vacuo dilatation of the ventricular system. Mild senescent white matter changes of the supratentorial brain most likely on the basis of microangiopathic degeneration.Sinuses are predominantly clear. Trace dependent bilateral mastoid effusions.The major flow voids of the anterior and posterior intracranial circulation are adequately maintained.IMPRESSION:No acute intracranial abnormalities. Specifically, no evidence of an acute infarctionAge-related cortical volume loss with ex vacuo dilatation of the ventricular systemMild senescent white matter signal changes of the supratentorial brain.THIS IS AN ELECTRONICALLY VERIFIED FINAL REPORT01/26/2024 5:28 PM - Electronically signed by Zack Khoury MD
[2024-01-26] MEDS: LEXAPRO ONE (18:11)
[2024-01-26] MEDS: REMERON PO SCH (20:15)
[2024-01-26] MEDS: DESYREL PO PRN (20:15)
[2024-01-26] MEDS: SNACK - Diabetic Appropriate PO SCH (20:15)
[2024-01-27 06:30] LABS: BASOPHILS % (AUTO) 0.5 % (0.2-1.0); EOSINOPHILS # (AUTO) 0.1 x10^3/uL (0.0-0.2); EOSINOPHILS % (AUTO) 0.7 % (0.9-2.9); HEMATOCRIT 32.8 % (36.0-47.0); HEMOGLOBIN 11.3 g/dL (12.0-16.0); LYMPHOCYTES # (AUTO) 3.1 X10^3/uL (1.3-2.9); LYMPHOCYTES % (AUTO) 40.2 % (21.0-51.0); MEAN CORPUSCULAR HEMOGLOBIN 33.8 pg (27.0-34.0); MEAN CORPUSCULAR HGB CONC 34.6 g/dL (33.0-35.0); MEAN CORPUSCULAR VOLUME 97.7 fL (80.0-100.0); MEAN PLATELET VOLUME 8.6 fL (7.4-11.0); MONOCYTES # (AUTO) 0.5 x10^3/uL (0.3-0.8); MONOCYTES % (AUTO) 6.1 % (0.0-13.0); NEUTROPHILS # (AUTO) 4.1 x10^3/uL (2.2-4.8); NEUTROPHILS % (AUTO) 52.5 % (42.0-75.0); PLATELET COUNT 150 X10^3/uL (150.0-450.0); RED BLOOD COUNT 3.36 X10^6/uL (3.5-5.4); RED CELL DISTRIBUTION WIDTH 14.5 % (11.6-16.5); WHITE BLOOD COUNT 7.8 X10^3/uL (3.6-10.0)
[2024-01-27 07:00] LABS: ALANINE AMINOTRANSFERASE 36 Units/L (12-78); ALBUMIN 3.5 g/dL (3.4-5.0); ALKALINE PHOSPHATASE 179 Units/L (46-116); ASPARTATE AMINO TRANSFERASE 38 Units/L (15-37); BLOOD UREA NITROGEN 13 mg/dL (7-18); CALCIUM 8.7 mg/dL (8.5-10.1); CARBON DIOXIDE 24.8 mmol/L (21-32); CHLORIDE 109 mmol/L (98-107); CREATININE 1.45 mg/dL (0.55-1.02); GLUCOSE 81 mg/dL (65-99); MAGNESIUM 1.5 mg/dL (2.0-2.9); POTASSIUM 3.8 mmol/L (3.5-5.1); SODIUM 145 mmol/L (136-145); TOTAL PROTEIN 6.9 g/dL (6.4-8.2); eGFR NON BLACK RACES 38 (>60)
[2024-01-27] MEDS: NS 500 ML IV 500 ML IV ONE (10:53)
[2024-01-27] MEDS: VALIUM PO ONE (11:32)
[2024-01-27] MEDS: LEXAPRO ONE (11:56)
[2024-01-27 12:18] LABS: BLOOD UREA NITROGEN 13 mg/dL (7-18); CALCIUM 8.6 mg/dL (8.5-10.1); CARBON DIOXIDE 24.6 mmol/L (21-32); CHLORIDE 108 mmol/L (98-107); CREATININE 1.42 mg/dL (0.55-1.02); GLUCOSE 94 mg/dL (65-99); POTASSIUM 4.1 mmol/L (3.5-5.1); SODIUM 143 mmol/L (136-145); eGFR NON BLACK RACES 39 (>60)
[2024-01-28 05:43] LABS: ALANINE AMINOTRANSFERASE 30 Units/L (12-78); ALBUMIN 3.3 g/dL (3.4-5.0); ALKALINE PHOSPHATASE 180 Units/L (46-116); ASPARTATE AMINO TRANSFERASE 36 Units/L (15-37); BLOOD UREA NITROGEN 13 mg/dL (7-18); CALCIUM 8.5 mg/dL (8.5-10.1); CARBON DIOXIDE 24.6 mmol/L (21-32); CHLORIDE 109 mmol/L (98-107); COR CA(FOR HYPOALB) 9.1 mg/dL (8.5-10.1); CREATININE 1.27 mg/dL (0.55-1.02); GLUCOSE 86 mg/dL (65-99); MAGNESIUM 1.6 mg/dL (2.0-2.9); POTASSIUM 4.4 mmol/L (3.5-5.1); SODIUM 142 mmol/L (136-145); TOTAL PROTEIN 6.6 g/dL (6.4-8.2); eGFR NON BLACK RACES 44 (>60)
[2024-01-28 06:06] LABS: BASOPHILS % (AUTO) 0.5 % (0.2-1.0); EOSINOPHILS # (AUTO) 0.1 x10^3/uL (0.0-0.2); EOSINOPHILS % (AUTO) 1.1 % (0.9-2.9); HEMATOCRIT 34.4 % (36.0-47.0); HEMOGLOBIN 11.5 g/dL (12.0-16.0); LYMPHOCYTES # (AUTO) 2.6 X10^3/uL (1.3-2.9); LYMPHOCYTES % (AUTO) 35.8 % (21.0-51.0); MEAN CORPUSCULAR HEMOGLOBIN 32.8 pg (27.0-34.0); MEAN CORPUSCULAR HGB CONC 33.3 g/dL (33.0-35.0); MEAN CORPUSCULAR VOLUME 98.4 fL (80.0-100.0); MEAN PLATELET VOLUME 8.6 fL (7.4-11.0); MONOCYTES # (AUTO) 0.5 x10^3/uL (0.3-0.8); MONOCYTES % (AUTO) 7.3 % (0.0-13.0); NEUTROPHILS # (AUTO) 4.1 x10^3/uL (2.2-4.8); NEUTROPHILS % (AUTO) 55.3 % (42.0-75.0); PLATELET COUNT 137 X10^3/uL (150.0-450.0); RED BLOOD COUNT 3.49 X10^6/uL (3.5-5.4); RED CELL DISTRIBUTION WIDTH 14.3 % (11.6-16.5); WHITE BLOOD COUNT 7.3 X10^3/uL (3.6-10.0)
[2024-01-28] MEDS ORDERED: CONSULT PHARMACY - POTASSIUM & MAGNESIUM XX SCH (07:00)
[2024-01-28] MEDS ORDERED: LEXAPRO ONE (07:53)
--- NOTE | 2024-01-28 07:55 | PCM.PROG ---
Progress Note Progress Note for Day of Date of Exam: 01/27/24 Subjective Subjective: The patient is alert and awake this morning. The ultrasounds of her carotid arteries are within normal limits. They do show less than 50% stenosis bilaterally in the intracranial carotid arteries. We are going to do a MRA of her neck and brain today. We will follow up with the results at that time. Follow-up swallowing study. MRI of the patient's brain shows no evidence of CVA. Past Medical Family Social History Allergies: Allergies levofloxacin [From Levaquin] Allergy (Unknown, Verified 08/07/22 08:58) meperidine [From Demerol] Adverse Reaction (Mild, Verified 08/07/22 08:58) NAUSEA Review of Systems ROS: No change since H&P Vital Signs and I&O's Vital Signs: Vital Signs Temperature 98.3 F Temperature 98 F Temperature 98.3 F Pulse Rate [Brachial] 71 Pulse Rate [Brachial] 77 Pulse Rate [Brachial] 87 Respiratory Rate 18 Respiratory Rate 19 Respiratory Rate 21 Blood Pressure [Right Arm] 173/75 Blood Pressure [Right Arm] 155/69 Blood Pressure [Left Arm] 172/77 O2 Sat by Pulse Oximetry 94 O2 Sat by Pulse Oximetry 97 O2 Sat by Pulse Oximetry 95 Intake and Output: Intake & Output 01/25/24 01/26/24 01/27/24 01/28/24 11:59 11:59 11:59 11:59 Intake Total 622 / 622 3944 / 3944 3749 / 3749 Balance 622 / 622 3944 / 3944 3749 / 3749 Physical Exam Oriented: Normal, Time, Person and Place Eyes: Normal Ear: Normal Respiratory: Normal Cardiovascular: Normal Tenderness: Normal Skin: Normal Musculoskeletal: Normal, Motor Deficit (Symmetric bilateral upper extremity strength as well as bilateral lower muscle strength.) and Sensory Deficit (None) Psychiatric: Depression Mood Description: Calm Affect: Normal Speech Pattern: Clear and Appropriate Laboratory and Diagnostics 01/28/24 04:55 01/28/24 04:55 Labs: Laboratory WBC 7.3 X10^3/uL (3.6-10.0) 01/28/24 04:55 RBC 3.49 X10^6/uL (3.5-5.4) L 01/28/24 04:55 Hgb 11.5 g/dL (12.0-16.0) L 01/28/24 04:55 Hct 34.4 % (36.0-47.0) L 01/28/24 04:55 MCV 98.4 fL (80.0-100.0) 01/28/24 04:55 MCH 32.8 pg (27.0-34.0) 01/28/24 04:55 MCHC 33.3 g/dL (33.0-35.0) 01/28/24 04:55 RDW 14.3 % (11.6-16.5) 01/28/24 04:55 Plt Count 137 X10^3/uL (150.0-450.0) L 01/28/24 04:55 MPV 8.6 fL (7.4-11.0) 01/28/24 04:55 Neut % (Auto) 55.3 % (42.0-75.0) 01/28/24 04:55 Lymph % (Auto) 35.8 % (21.0-51.0) 01/28/24 04:55 [place] % (Auto) 7.3 % (0.0-13.0) 01/28/24 04:55 Eos % (Auto) 1.1 % (0.9-2.9) 01/28/24 04:55 Baso % (Auto) 0.5 % (0.2-1.0) 01/28/24 04:55 Neut # (Auto) 4.1 x10^3/uL (2.2-4.8) 01/28/24 04:55 Lymph # (Auto) 2.6 X10^3/uL (1.3-2.9) 01/28/24 04:55 [place] # (Auto) 0.5 x10^3/uL (0.3-0.8) 01/28/24 04:55 Eos # (Auto) 0.1 x10^3/uL (0.0-0.2) 01/28/24 04:55 Baso # (Auto) 0.0 X10^3/uL (0.0-0.1) 01/28/24 04:55 Absolute Nucleated RBC 0.1 /100WBC 01/28/24 04:55 PT 14.9 SECONDS (11.8-14.3) 01/26/24 04:15 INR Target Range - 01/26/24 04:15 INR 1.20 (0.8-1.3) 01/26/24 04:15 APTT 27.1 SECONDS (22.9-36.5) 01/26/24 04:15 PTT Comment - 01/26/24 04:15 Sodium 142 mmol/L (136-145) 01/28/24 04:55 Corrected Sodium TNP 01/28/24 04:55 Potassium 4.4 mmol/L (3.5-5.1) 01/28/24 04:55 Chloride 109 mmol/L (98-107) H 01/28/24 04:55 Carbon Dioxide 24.6 mmol/L (21-32) 01/28/24 04:55 BUN 13 mg/dL (7-18) 01/28/24 04:55 Creatinine 1.27 mg/dL (0.55-1.02) H 01/28/24 04:55 Est GFR (MDRD) Af Amer 53 (>60) L 01/28/24 04:55 Est GFR (MDRD) Non-Af 44 (>60) L 01/28/24 04:55 Glucose 86 mg/dL (65-99) 01/28/24 04:55 POC Glucose (mg/dL) 91 mg/dL (65-99) 01/27/24 11:21 Calcium 8.5 mg/dL (8.5-10.1) 01/28/24 04:55 Corrected Calcium 9.1 mg/dL (8.5-10.1) 01/28/24 04:55 Magnesium 1.6 mg/dL (2.0-2.9) L 01/28/24 04:55 Total Bilirubin 0.50 mg/dL (0.2-1.0) 01/28/24 04:55 AST 36 Units/L (15-37) 01/28/24 04:55 ALT 30 Units/L (12-78) 01/28/24 04:55 Alkaline Phosphatase 180 Units/L (46-116) H 01/28/24 04:55 Total Protein 6.6 g/dL (6.4-8.2) 01/28/24 04:55 Albumin 3.3 g/dL (3.4-5.0) L 01/28/24 04:55 Globulin 3.3 g/dL (2.5-4.5) 01/28/24 04:55 Albumin/Globulin Ratio 1.0 Ratio (1.1-2.1) L 01/28/24 04:55 Specimen Type Clean catch urine 01/25/24 19:15 Urine Color Yellow (YELLOW) 01/25/24 19:15 Urine Appearance Clear (CLEAR) 01/25/24 19:15 Urine pH 7.0 (5.0 - 8.0) 01/25/24 19:15 Ur Specific [place] 1.010 (1.000-1.030) 01/25/24 19:15 Urine Protein 1+ (NEGATIVE) 01/25/24 19:15 Urine Glucose (UA) 4+ (NEGATIVE) 01/25/24 19:15 Urine Ketones Negative (NEGATIVE) 01/25/24 19:15 Urine Blood Negative (NEGATIVE) 01/25/24 19:15 Urine Nitrite Negative (NEGATIVE) 01/25/24 19:15 Urine Bilirubin Negative (NEGATIVE) 01/25/24 19:15 Urine Urobilinogen Normal (NORMAL) 01/25/24 19:15 Ur Leukocyte Esterase Negative (NEGATIVE) 01/25/24 19:15 Urine RBC 0-2 /HPF (0-3) 01/25/24 19:15 Urine WBC 0-2 /HPF (0-5) 01/25/24 19:15 Ur Squamous Epith Cells Rare /HPF (NEGATIVE) 01/25/24 19:15 Urine Bacteria Negative /HPF (NEGATIVE) 01/25/24 19:15 Ur Culture Indicated? No/not indicated 01/25/24 19:15 Plan (1) Acute CVA (cerebrovascular accident): Status: Acute Plan: 1. The patient has been loaded with Plavix 3 mg x 1 and continued on Plavix 75 mg 1 p.o. daily. 2. Continue aspirin 81 mg 1 p.o. daily. 3. Continue atorvastatin 10 mg 1 p.o. nightly 4. She is continuing IV hydralazine as needed for elevated blood pressure. 5. We will plan to switch her over to oral antihypertensives tomorrow. 6. Check bilateral carotid artery ultrasound 7. Check MRI brain 8. Check CTA neck and brain arteries once estimated GFR is within normal range to do it. 9. Check neurochecks every 2 hours
--- NOTE | 2024-01-28 08:04 | MRI ---
EXAM: MRA HEAD W/O CON; MRA NECK W/O CON HISTORY: CVA VS TIA, [place] CVA / migraine; ; CVA VS TIA, [place] CVA/ migraine; COMPARISON: None. TECHNIQUE: MRA images were obtained without IV contrast utilizing a routine protocol. 3D reconstructed images we re created for further characterization by the technologist. FINDINGS: HEAD: Anterior Circulation: Right internal carotid artery: Unremarkable. Intracranial segment is patent with no significant steno sis. No aneurysm. Right middle cerebral artery: No occlusion or significant stenosis. No aneurysm. Right anterior cerebral artery: Unremarkable. No occlusion or significant stenosis. No aneurysm. Left internal carotid artery: Unremarkable. Intracranial segment is patent with no significant stenos is. No aneurysm. Left middle cerebral artery: Unremarkable. No occlusion or significant stenosis. No aneurysm. Left anterior cerebral artery: Unremarkable. No occlusion or significant stenosis. No aneurysm. Posterior Circulation: Right vertebral artery: Unremarkable. No occlusion or significant stenosis. No aneurysm. Left vertebral artery: Unremarkable. No occlusion or significant stenosis. No aneurysm. Basilar artery: Unremarkable. No occlusion or significant stenosis. No aneurysm. Right posterior cerebral artery: Unremarkable. No occlusion or significant stenosis. No aneurysm. Left posterior cerebral artery: Unremarkable. No occlusion or significant stenosis. No aneurysm. NECK: GREAT VESSELS: The visualized segments of the great vessels are patent. RIGHT ICA: No stenosis by NASCET criteria at the bifurcation. LEFT ICA: No stenosis by NASCET criteria at the bifurcation. VERTEBRAL ARTERIES: Patent extracranial segments. IMPRESSION: No clinically significant stenosis or occlusion in the vessels of the head or neck. THIS IS AN ELECTRONICALLY VERIFIED FINAL REPORT 01/28/2024 8:01 AM - Electronically signed by Zachary Whitman MD
--- NOTE | 2024-01-28 08:04 | MRI ---
EXAM:MRA HEAD W/O CON; MRA NECK W/O CONHISTORY:CVA VS TIA, [place] CVA / migraine; ; CVA VS TIA, [place] CVA/ migraine;COMPARISON:None.TECHNIQUE:MRA images were obtained without IV contrast utilizing a routine protocol. 3D reconstructed images were created for further characterization by the technologist.FINDINGS:HEAD:Anterior Circulation:Right internal carotid artery: Unremarkable. Intracranial segment is patent with no significant stenosis. No aneurysm.Right middle cerebral artery: No occlusion or significant stenosis. No aneurysm.Right anterior cerebral artery: Unremarkable. No occlusion or significant stenosis. No aneurysm.Left internal carotid artery: Unremarkable. Intracranial segment is patent with no significant stenosis. No aneurysm.Left middle cerebral artery: Unremarkable. No occlusion or significant stenosis. No aneurysm.Left anterior cerebral artery: Unremarkable. No occlusion or significant stenosis. No aneurysm.Posterior Circulation:Right vertebral artery: Unremarkable. No occlusion or significant stenosis. No aneurysm.Left vertebral artery: Unremarkable. No occlusion or significant stenosis. No aneurysm.Basilar artery: Unremarkable. No occlusion or significant stenosis. No aneurysm.Right posterior cerebral artery: Unremarkable. No occlusion or significant stenosis. No aneurysm.Left posterior cerebral artery: Unremarkable. No occlusion or significant stenosis. No aneurysm.NECK:GREAT VESSELS: The visualized segments of the great vessels are patent.RIGHT ICA: No stenosis by NASCET criteria at the bifurcation.LEFT ICA: No stenosis by NASCET criteria at the bifurcation.VERTEBRAL ARTERIES: Patent extracranial segments.IMPRESSION:No clinically significant stenosis or occlusion in the vessels of the head or neck.THIS IS AN ELECTRONICALLY VERIFIED FINAL REPORT01/28/2024 8:01 AM - Electronically signed by Zachary Whitman MD
[2024-01-28] MEDS: BENICAR PO SCH (09:37)
[2024-01-28] MEDS: MAG-OX TAB PO SCH (09:37)
--- NOTE | 2024-01-28 16:39 | PCM.PROG ---
Progress Note Progress Note for Day of Date of Exam: 01/28/24 Subjective Subjective: The patient is alert and awake this morning. The MRA of her neck and head are all normal. There is no evidence of any stenosis anywhere. The ultrasounds of her carotid arteries are within normal limits. They show less than 50% stenosis bilaterally in the intracranial carotid arteries. The patient seems to be feeling better overall and is in better spirits today. She is quite excited about the good news about her MRI and MRI of her brain. We are going to try to do a swing bed admission for the patient so we can do some continue physical therapy here for her overall generalized weak condition. I think her symptoms were secondary to a TIA as there is no indication of a recent CVA on the MRI scan. However, she does have left lower extremity weakness this is likely a chronic problem for her but she already has seem to respond to some initial physical therapy, and I think she would do well to continue that for a short-term to help bit of her strength to increase her ambulation and decrease her risk of falls after she goes home. Past Medical Family Social History Allergies: Allergies levofloxacin [From Levaquin] Allergy (Unknown, Verified 08/07/22 08:58) meperidine [From Demerol] Adverse Reaction (Mild, Verified 08/07/22 08:58) NAUSEA Review of Systems ROS: No change since H&P Vital Signs and I&O's Vital Signs: Vital Signs Temperature 98.3 F Temperature 98.2 F Pulse Rate [Brachial] 76 Pulse Rate [Brachial] 81 Respiratory Rate 20 Respiratory Rate 17 Blood Pressure [Left Arm] 168/72 Blood Pressure [Left Arm] 173/74 O2 Sat by Pulse Oximetry 94 O2 Sat by Pulse Oximetry 92 Intake and Output: Intake & Output 01/26/24 01/27/24 01/28/24 01/29/24 11:59 11:59 11:59 11:59 Intake Total 622 / 622 3944 / 3944 3749 / 3749 1599 / 1600 Balance 622 / 622 3944 / 3944 3749 / 3749 1599 / 1600 Physical Exam Oriented: Normal, Time, Person and Place Eyes: Normal Ear: Normal Respiratory: Normal Cardiovascular: Normal Tenderness: Normal Skin: Normal Musculoskeletal: Normal, Motor Deficit (Symmetric bilateral upper extremity strength as well as bilateral lower muscle strength.) and Sensory Deficit (None) Psychiatric: Depression Mood Description: Calm Affect: Normal Speech Pattern: Clear and Appropriate Laboratory and Diagnostics 01/28/24 04:55 01/28/24 04:55 Labs: Laboratory WBC 7.3 X10^3/uL (3.6-10.0) 01/28/24 04:55 RBC 3.49 X10^6/uL (3.5-5.4) L 01/28/24 04:55 Hgb 11.5 g/dL (12.0-16.0) L 01/28/24 04:55 Hct 34.4 % (36.0-47.0) L 01/28/24 04:55 MCV 98.4 fL (80.0-100.0) 01/28/24 04:55 MCH 32.8 pg (27.0-34.0) 01/28/24 04:55 MCHC 33.3 g/dL (33.0-35.0) 01/28/24 04:55 RDW 14.3 % (11.6-16.5) 01/28/24 04:55 Plt Count 137 X10^3/uL (150.0-450.0) L 01/28/24 04:55 MPV 8.6 fL (7.4-11.0) 01/28/24 04:55 Neut % (Auto) 55.3 % (42.0-75.0) 01/28/24 04:55 Lymph % (Auto) 35.8 % (21.0-51.0) 01/28/24 04:55 [place] % (Auto) 7.3 % (0.0-13.0) 01/28/24 04:55 Eos % (Auto) 1.1 % (0.9-2.9) 01/28/24 04:55 Baso % (Auto) 0.5 % (0.2-1.0) 01/28/24 04:55 Neut # (Auto) 4.1 x10^3/uL (2.2-4.8) 01/28/24 04:55 Lymph # (Auto) 2.6 X10^3/uL (1.3-2.9) 01/28/24 04:55 [place] # (Auto) 0.5 x10^3/uL (0.3-0.8) 01/28/24 04:55 Eos # (Auto) 0.1 x10^3/uL (0.0-0.2) 01/28/24 04:55 Baso # (Auto) 0.0 X10^3/uL (0.0-0.1) 01/28/24 04:55 Absolute Nucleated RBC 0.1 /100WBC 01/28/24 04:55 PT 14.9 SECONDS (11.8-14.3) 01/26/24 04:15 INR Target Range - 01/26/24 04:15 INR 1.20 (0.8-1.3) 01/26/24 04:15 APTT 27.1 SECONDS (22.9-36.5) 01/26/24 04:15 PTT Comment - 01/26/24 04:15 Sodium 142 mmol/L (136-145) 01/28/24 04:55 Corrected Sodium TNP 01/28/24 04:55 Potassium 4.4 mmol/L (3.5-5.1) 01/28/24 04:55 Chloride 109 mmol/L (98-107) H 01/28/24 04:55 Carbon Dioxide 24.6 mmol/L (21-32) 01/28/24 04:55 BUN 13 mg/dL (7-18) 01/28/24 04:55 Creatinine 1.27 mg/dL (0.55-1.02) H 01/28/24 04:55 Est GFR (MDRD) Af Amer 53 (>60) L 01/28/24 04:55 Est GFR (MDRD) Non-Af 44 (>60) L 01/28/24 04:55 Glucose 86 mg/dL (65-99) 01/28/24 04:55 POC Glucose (mg/dL) 91 mg/dL (65-99) 01/27/24 11:21 Calcium 8.5 mg/dL (8.5-10.1) 01/28/24 04:55 Corrected Calcium 9.1 mg/dL (8.5-10.1) 01/28/24 04:55 Magnesium 1.6 mg/dL (2.0-2.9) L 01/28/24 04:55 Total Bilirubin 0.50 mg/dL (0.2-1.0) 01/28/24 04:55 AST 36 Units/L (15-37) 01/28/24 04:55 ALT 30 Units/L (12-78) 01/28/24 04:55 Alkaline Phosphatase 180 Units/L (46-116) H 01/28/24 04:55 Total Protein 6.6 g/dL (6.4-8.2) 01/28/24 04:55 Albumin 3.3 g/dL (3.4-5.0) L 01/28/24 04:55 Globulin 3.3 g/dL (2.5-4.5) 01/28/24 04:55 Albumin/Globulin Ratio 1.0 Ratio (1.1-2.1) L 01/28/24 04:55 Specimen Type Clean catch urine 01/25/24 19:15 Urine Color Yellow (YELLOW) 01/25/24 19:15 Urine Appearance Clear (CLEAR) 01/25/24 19:15 Urine pH 7.0 (5.0 - 8.0) 01/25/24 19:15 Ur Specific [place] 1.010 (1.000-1.030) 01/25/24 19:15 Urine Protein 1+ (NEGATIVE) 01/25/24 19:15 Urine Glucose (UA) 4+ (NEGATIVE) 01/25/24 19:15 Urine Ketones Negative (NEGATIVE) 01/25/24 19:15 Urine Blood Negative (NEGATIVE) 01/25/24 19:15 Urine Nitrite Negative (NEGATIVE) 01/25/24 19:15 Urine Bilirubin Negative (NEGATIVE) 01/25/24 19:15 Urine Urobilinogen Normal (NORMAL) 01/25/24 19:15 Ur Leukocyte Esterase Negative (NEGATIVE) 01/25/24 19:15 Urine RBC 0-2 /HPF (0-3) 01/25/24 19:15 Urine WBC 0-2 /HPF (0-5) 01/25/24 19:15 Ur Squamous Epith Cells Rare /HPF (NEGATIVE) 01/25/24 19:15 Urine Bacteria Negative /HPF (NEGATIVE) 01/25/24 19:15 Ur Culture Indicated? No/not indicated 01/25/24 19:15 Plan (1) Acute CVA (cerebrovascular accident): Status: Acute Plan: 1. The patient has been loaded with Plavix 3 mg x 1 and continued on Plavix 75 mg 1 p.o. daily. 2. Continue aspirin 81 mg 1 p.o. daily. 3. Continue atorvastatin 10 mg 1 p.o. nightly 4. She is continuing IV hydralazine as needed for elevated blood pressure. 5. We will plan to switch her over to oral antihypertensives tomorrow. 6. Check bilateral carotid artery ultrasound 7. Check MRI brain 8. Check CTA neck and brain arteries once estimated GFR is within normal range to do it. 9. Check neurochecks every 2 hours (2) Brain TIA: Status: Acute Plan: Reassured patient that she did not have a CVA. (3) Weakness of left lower extremity: Status: Acute Plan: Continue physical therapy to decrease the risk for falls and plan on changing her to a swing bed admission if it gets approved.
[2024-01-28] MEDS: COLACE CAP 100 MG PO PRN (20:51)
[2024-01-29 05:06] LABS: BASOPHILS # (AUTO) 0.1 X10^3/uL (0.0-0.1); BASOPHILS % (AUTO) 0.7 % (0.2-1.0); EOSINOPHILS # (AUTO) 0.1 x10^3/uL (0.0-0.2); EOSINOPHILS % (AUTO) 0.8 % (0.9-2.9); HEMATOCRIT 32.9 % (36.0-47.0); HEMOGLOBIN 11.2 g/dL (12.0-16.0); LYMPHOCYTES # (AUTO) 2.9 X10^3/uL (1.3-2.9); LYMPHOCYTES % (AUTO) 35.8 % (21.0-51.0); MEAN CORPUSCULAR HEMOGLOBIN 33.3 pg (27.0-34.0); MEAN CORPUSCULAR HGB CONC 33.9 g/dL (33.0-35.0); MEAN CORPUSCULAR VOLUME 98.3 fL (80.0-100.0); MEAN PLATELET VOLUME 8.6 fL (7.4-11.0); MONOCYTES # (AUTO) 0.6 x10^3/uL (0.3-0.8); MONOCYTES % (AUTO) 7.4 % (0.0-13.0); NEUTROPHILS # (AUTO) 4.5 x10^3/uL (2.2-4.8); NEUTROPHILS % (AUTO) 55.3 % (42.0-75.0); PLATELET COUNT 150 X10^3/uL (150.0-450.0); RED BLOOD COUNT 3.35 X10^6/uL (3.5-5.4); RED CELL DISTRIBUTION WIDTH 14.3 % (11.6-16.5); WHITE BLOOD COUNT 8.1 X10^3/uL (3.6-10.0)
[2024-01-29 05:23] LABS: ALANINE AMINOTRANSFERASE 38 Units/L (12-78); ALBUMIN 3.4 g/dL (3.4-5.0); ALKALINE PHOSPHATASE 195 Units/L (46-116); ASPARTATE AMINO TRANSFERASE 42 Units/L (15-37); BLOOD UREA NITROGEN 13 mg/dL (7-18); CALCIUM 8.8 mg/dL (8.5-10.1); CARBON DIOXIDE 28.1 mmol/L (21-32); CHLORIDE 109 mmol/L (98-107); CREATININE 1.27 mg/dL (0.55-1.02); GLUCOSE 83 mg/dL (65-99); MAGNESIUM 1.9 mg/dL (2.0-2.9); POTASSIUM 4.1 mmol/L (3.5-5.1); SODIUM 143 mmol/L (136-145); TOTAL PROTEIN 6.8 g/dL (6.4-8.2); eGFR NON BLACK RACES 44 (>60)
[2024-01-29] MEDS ORDERED: LEXAPRO ONE (08:04)
[2024-01-29] MEDS: COREG TAB 6.25 MG PO SCH (08:31)
[2024-01-30 05:42] LABS: BASOPHILS % (AUTO) 0.5 % (0.2-1.0); EOSINOPHILS # (AUTO) 0.1 x10^3/uL (0.0-0.2); EOSINOPHILS % (AUTO) 1.1 % (0.9-2.9); HEMATOCRIT 33.6 % (36.0-47.0); HEMOGLOBIN 11.4 g/dL (12.0-16.0); LYMPHOCYTES # (AUTO) 2.2 X10^3/uL (1.3-2.9); LYMPHOCYTES % (AUTO) 24.5 % (21.0-51.0); MEAN CORPUSCULAR HEMOGLOBIN 33.2 pg (27.0-34.0); MEAN CORPUSCULAR HGB CONC 33.9 g/dL (33.0-35.0); MEAN CORPUSCULAR VOLUME 98.1 fL (80.0-100.0); MEAN PLATELET VOLUME 8.6 fL (7.4-11.0); MONOCYTES # (AUTO) 0.5 x10^3/uL (0.3-0.8); MONOCYTES % (AUTO) 5.4 % (0.0-13.0); NEUTROPHILS % (AUTO) 68.5 % (42.0-75.0); PLATELET COUNT 166 X10^3/uL (150.0-450.0); RED BLOOD COUNT 3.43 X10^6/uL (3.5-5.4); RED CELL DISTRIBUTION WIDTH 14.1 % (11.6-16.5); WHITE BLOOD COUNT 8.8 X10^3/uL (3.6-10.0)
[2024-01-30 05:58] LABS: ALANINE AMINOTRANSFERASE 37 Units/L (12-78); ALBUMIN 3.3 g/dL (3.4-5.0); ALKALINE PHOSPHATASE 209 Units/L (46-116); ASPARTATE AMINO TRANSFERASE 43 Units/L (15-37); BLOOD UREA NITROGEN 12 mg/dL (7-18); CALCIUM 8.6 mg/dL (8.5-10.1); CARBON DIOXIDE 23.7 mmol/L (21-32); CHLORIDE 109 mmol/L (98-107); COR CA(FOR HYPOALB) 9.2 mg/dL (8.5-10.1); CREATININE 1.18 mg/dL (0.55-1.02); GLUCOSE 96 mg/dL (65-99); MAGNESIUM 1.9 mg/dL (2.0-2.9); SODIUM 141 mmol/L (136-145); TOTAL PROTEIN 6.6 g/dL (6.4-8.2); eGFR NON BLACK RACES 48 (>60)
[2024-01-30] MEDS ORDERED: LEXAPRO ONE (08:04)
[2024-01-30] MEDS: MAG-OX TAB PO SCH (10:21)
[2024-01-30] MEDS: NORVASC TAB 10 MG PO SCH (11:44)
[2024-01-31 05:30] LABS: BASOPHILS % (AUTO) 0.3 % (0.2-1.0); EOSINOPHILS # (AUTO) 0.1 x10^3/uL (0.0-0.2); EOSINOPHILS % (AUTO) 0.8 % (0.9-2.9); HEMATOCRIT 34.2 % (36.0-47.0); HEMOGLOBIN 11.6 g/dL (12.0-16.0); LYMPHOCYTES # (AUTO) 2.6 X10^3/uL (1.3-2.9); MEAN CORPUSCULAR HEMOGLOBIN 33.5 pg (27.0-34.0); MEAN CORPUSCULAR HGB CONC 34.1 g/dL (33.0-35.0); MEAN CORPUSCULAR VOLUME 98.4 fL (80.0-100.0); MEAN PLATELET VOLUME 8.6 fL (7.4-11.0); MONOCYTES # (AUTO) 0.6 x10^3/uL (0.3-0.8); MONOCYTES % (AUTO) 6.3 % (0.0-13.0); NEUTROPHILS # (AUTO) 5.9 x10^3/uL (2.2-4.8); NEUTROPHILS % (AUTO) 64.6 % (42.0-75.0); PLATELET COUNT 191 X10^3/uL (150.0-450.0); RED BLOOD COUNT 3.47 X10^6/uL (3.5-5.4); RED CELL DISTRIBUTION WIDTH 14.4 % (11.6-16.5); WHITE BLOOD COUNT 9.2 X10^3/uL (3.6-10.0)
[2024-01-31 05:49] LABS: ALBUMIN 3.3 g/dL (3.4-5.0); CALCIUM 8.7 mg/dL (8.5-10.1); CARBON DIOXIDE 27.3 mmol/L (21-32); COR CA(FOR HYPOALB) 9.3 mg/dL (8.5-10.1); CREATININE 1.22 mg/dL (0.55-1.02); POTASSIUM 3.5 mmol/L (3.5-5.1); TOTAL PROTEIN 6.8 g/dL (6.4-8.2)
[2024-01-31] MEDS: CONSULT PHARMACY - POTASSIUM & MAGNESIUM XX SCH ×2 (08:31→19:09)
[2024-01-31] MEDS: K-DUR TAB 20 MEQ PO SCH (08:33)
[2024-01-31] MEDS: LEXAPRO ONE (08:33)
[2024-01-31] MEDS: RHINOCORT ALLERGY NASAL SPRAY ENOSTRIL SCH (11:41)
[2024-01-31] MEDS: ZADITOR EYE DROPS EACHEYE PRN (21:14)
[2024-02-01 06:27] LABS: BASOPHILS # (AUTO) 0.1 X10^3/uL (0.0-0.1); BASOPHILS % (AUTO) 0.7 % (0.2-1.0); EOSINOPHILS # (AUTO) 0.1 x10^3/uL (0.0-0.2); EOSINOPHILS % (AUTO) 1.3 % (0.9-2.9); HEMATOCRIT 33.1 % (36.0-47.0); HEMOGLOBIN 11.3 g/dL (12.0-16.0); LYMPHOCYTES # (AUTO) 2.6 X10^3/uL (1.3-2.9); LYMPHOCYTES % (AUTO) 32.5 % (21.0-51.0); MEAN CORPUSCULAR HEMOGLOBIN 33.4 pg (27.0-34.0); MEAN CORPUSCULAR HGB CONC 34.1 g/dL (33.0-35.0); MEAN PLATELET VOLUME 8.2 fL (7.4-11.0); MONOCYTES # (AUTO) 0.5 x10^3/uL (0.3-0.8); MONOCYTES % (AUTO) 6.5 % (0.0-13.0); NEUTROPHILS # (AUTO) 4.7 x10^3/uL (2.2-4.8); PLATELET COUNT 164 X10^3/uL (150.0-450.0); RED BLOOD COUNT 3.38 X10^6/uL (3.5-5.4); RED CELL DISTRIBUTION WIDTH 14.4 % (11.6-16.5); WHITE BLOOD COUNT 7.9 X10^3/uL (3.6-10.0)
[2024-02-01 06:42] LABS: ALANINE AMINOTRANSFERASE 44 Units/L (12-78); ALBUMIN 3.1 g/dL (3.4-5.0); ALKALINE PHOSPHATASE 221 Units/L (46-116); ASPARTATE AMINO TRANSFERASE 46 Units/L (15-37); BLOOD UREA NITROGEN 11 mg/dL (7-18); CALCIUM 8.6 mg/dL (8.5-10.1); CARBON DIOXIDE 26.3 mmol/L (21-32); CHLORIDE 110 mmol/L (98-107); COR CA(FOR HYPOALB) 9.3 mg/dL (8.5-10.1); CREATININE 1.13 mg/dL (0.55-1.02); GLUCOSE 91 mg/dL (65-99); SODIUM 144 mmol/L (136-145); TOTAL PROTEIN 6.5 g/dL (6.4-8.2); eGFR NON BLACK RACES 50 (>60)
[2024-02-01 07:45] VITALS: BP 154/76; PULSE 65; RESP 18; TEMP 97.7; O2SAT 98
[2024-02-01] MEDS ORDERED: LEXAPRO ONE (08:03)
--- NOTE | 2024-02-01 16:25 | PCM.PROG ---
Progress Note Progress Note for Day of Date of Exam: 01/29/24 Subjective Subjective: The patient is alert and awake this morning. We are currently awaiting to see if her swing bed gets approved for inpatient rehabilitation for chronic left lower extremity weakness and generalized weakness. In the meantime we will continue current treatment and await swing bed placement after this weekend. Past Medical Family Social History Allergies: Allergies levofloxacin [From Levaquin] Allergy (Unknown, Verified 08/07/22 08:58) meperidine [From Demerol] Adverse Reaction (Mild, Verified 08/07/22 08:58) NAUSEA Review of Systems ROS: No change since H&P Vital Signs and I&O's Vital Signs: Vital Signs Temperature 98.0 F Temperature 98.0 F Temperature 98.2 F Pulse Rate [Brachial] 71 Pulse Rate [Brachial] 71 Pulse Rate [Brachial] 74 Respiratory Rate 22 Respiratory Rate 22 Respiratory Rate 18 Blood Pressure [Right Arm] 139/70 Blood Pressure [Left Arm] 139/70 Blood Pressure [Left Arm] 176/73 O2 Sat by Pulse Oximetry 96 O2 Sat by Pulse Oximetry 96 O2 Sat by Pulse Oximetry 96 Intake and Output: Intake & Output 01/27/24 01/28/24 01/29/24 01/30/24 11:59 11:59 11:59 11:59 Intake Total 3944 / 3944 3749 / 3749 5390 / 5390 3860 / 3860 Balance 3944 / 3944 3749 / 3749 5390 / 5390 3860 / 3860 Physical Exam Oriented: Normal, Time, Person and Place Eyes: Normal Ear: Normal Respiratory: Normal Cardiovascular: Normal Tenderness: Normal Skin: Normal Musculoskeletal: Normal, Motor Deficit (Symmetric bilateral upper extremity strength as well as bilateral lower muscle strength.) and Sensory Deficit (None) Psychiatric: Depression Mood Description: Calm Affect: Normal Speech Pattern: Clear and Appropriate Laboratory and Diagnostics 02/01/24 06:09 02/01/24 06:09 Labs: Laboratory WBC 8.8 X10^3/uL (3.6-10.0) 01/30/24 05:02 RBC 3.43 X10^6/uL (3.5-5.4) L 01/30/24 05:02 Hgb 11.4 g/dL (12.0-16.0) L 01/30/24 05:02 Hct 33.6 % (36.0-47.0) L 01/30/24 05:02 MCV 98.1 fL (80.0-100.0) 01/30/24 05:02 MCH 33.2 pg (27.0-34.0) 01/30/24 05:02 MCHC 33.9 g/dL (33.0-35.0) 01/30/24 05:02 RDW 14.1 % (11.6-16.5) 01/30/24 05:02 Plt Count 166 X10^3/uL (150.0-450.0) 01/30/24 05:02 MPV 8.6 fL (7.4-11.0) 01/30/24 05:02 Neut % (Auto) 68.5 % (42.0-75.0) 01/30/24 05:02 Lymph % (Auto) 24.5 % (21.0-51.0) 01/30/24 05:02 [place] % (Auto) 5.4 % (0.0-13.0) 01/30/24 05:02 Eos % (Auto) 1.1 % (0.9-2.9) 01/30/24 05:02 Baso % (Auto) 0.5 % (0.2-1.0) 01/30/24 05:02 Neut # (Auto) 6.0 x10^3/uL (2.2-4.8) H 01/30/24 05:02 Lymph # (Auto) 2.2 X10^3/uL (1.3-2.9) 01/30/24 05:02 [place] # (Auto) 0.5 x10^3/uL (0.3-0.8) 01/30/24 05:02 Eos # (Auto) 0.1 x10^3/uL (0.0-0.2) 01/30/24 05:02 Baso # (Auto) 0.0 X10^3/uL (0.0-0.1) 01/30/24 05:02 Absolute Nucleated RBC 0.0 /100WBC 01/30/24 05:02 PT 14.9 SECONDS (11.8-14.3) 01/26/24 04:15 INR Target Range - 01/26/24 04:15 INR 1.20 (0.8-1.3) 01/26/24 04:15 APTT 27.1 SECONDS (22.9-36.5) 01/26/24 04:15 PTT Comment - 01/26/24 04:15 Sodium 141 mmol/L (136-145) 01/30/24 05:02 Corrected Sodium TNP 01/30/24 05:02 Potassium 4.0 mmol/L (3.5-5.1) 01/30/24 05:02 Chloride 109 mmol/L (98-107) H 01/30/24 05:02 Carbon Dioxide 23.7 mmol/L (21-32) 01/30/24 05:02 BUN 12 mg/dL (7-18) 01/30/24 05:02 Creatinine 1.18 mg/dL (0.55-1.02) H 01/30/24 05:02 Est GFR (MDRD) Af Amer 58 (>60) L 01/30/24 05:02 Est GFR (MDRD) Non-Af 48 (>60) L 01/30/24 05:02 Glucose 96 mg/dL (65-99) 01/30/24 05:02 POC Glucose (mg/dL) 93 mg/dL (65-99) 01/30/24 05:30 Calcium 8.6 mg/dL (8.5-10.1) 01/30/24 05:02 Corrected Calcium 9.2 mg/dL (8.5-10.1) 01/30/24 05:02 Magnesium 1.9 mg/dL (2.0-2.9) L 01/30/24 05:02 Total Bilirubin 0.40 mg/dL (0.2-1.0) 01/30/24 05:02 AST 43 Units/L (15-37) H 01/30/24 05:02 ALT 37 Units/L (12-78) 01/30/24 05:02 Alkaline Phosphatase 209 Units/L (46-116) H 01/30/24 05:02 Total Protein 6.6 g/dL (6.4-8.2) 01/30/24 05:02 Albumin 3.3 g/dL (3.4-5.0) L 01/30/24 05:02 Globulin 3.3 g/dL (2.5-4.5) 01/30/24 05:02 Albumin/Globulin Ratio 1.0 Ratio (1.1-2.1) L 01/30/24 05:02 Specimen Type Clean catch urine 01/25/24 19:15 Urine Color Yellow (YELLOW) 01/25/24 19:15 Urine Appearance Clear (CLEAR) 01/25/24 19:15 Urine pH 7.0 (5.0 - 8.0) 01/25/24 19:15 Ur Specific [place] 1.010 (1.000-1.030) 01/25/24 19:15 Urine Protein 1+ (NEGATIVE) 01/25/24 19:15 Urine Glucose (UA) 4+ (NEGATIVE) 01/25/24 19:15 Urine Ketones Negative (NEGATIVE) 01/25/24 19:15 Urine Blood Negative (NEGATIVE) 01/25/24 19:15 Urine Nitrite Negative (NEGATIVE) 01/25/24 19:15 Urine Bilirubin Negative (NEGATIVE) 01/25/24 19:15 Urine Urobilinogen Normal (NORMAL) 01/25/24 19:15 Ur Leukocyte Esterase Negative (NEGATIVE) 01/25/24 19:15 Urine RBC 0-2 /HPF (0-3) 01/25/24 19:15 Urine WBC 0-2 /HPF (0-5) 01/25/24 19:15 Ur Squamous Epith Cells Rare /HPF (NEGATIVE) 01/25/24 19:15 Urine Bacteria Negative /HPF (NEGATIVE) 01/25/24 19:15 Ur Culture Indicated? No/not indicated 01/25/24 19:15 Plan (1) Acute CVA (cerebrovascular accident): Status: Acute Plan: 1. The patient has been loaded with Plavix 3 mg x 1 and continued on Plavix 75 mg 1 p.o. daily. 2. Continue aspirin 81 mg 1 p.o. daily. 3. Continue atorvastatin 10 mg 1 p.o. nightly 4. She is continuing IV hydralazine as needed for elevated blood pressure. 5. We will plan to switch her over to oral antihypertensives tomorrow. 6. Check bilateral carotid artery ultrasound 7. Check MRI brain 8. Check CTA neck and brain arteries once estimated GFR is within normal range to do it. 9. Check neurochecks every 2 hours (2) Brain TIA: Status: Acute Plan: Reassured patient that she did not have a CVA. (3) Weakness of left lower extremity: Status: Acute Plan: Continue physical therapy to decrease the risk for falls and plan on changing her to a swing bed admission if it gets approved.
== END 2024-02-01 08:59 | disposition swing bed (61) ==
LOC: MED/SURG 12:07 → ER 12:07 → MED/SURG 16:50
PROVIDERS: ADMIT Family Medicine; ATTEND Family Medicine
DX: R20.2 Paresthesia of skin; R51.9 Headache, unspecified; Z65.8 Other specified problems related to psychosocial circumstances; I10 Essential (primary) hypertension; E78.5 Hyperlipidemia, unspecified; R94.31 Abnormal electrocardiogram [ECG] [EKG]; Z86.73 Personal history of transient ischemic attack (TIA), and cerebral infarction without residual deficits; I63.89 Other cerebral infarction; G45.8 Other transient cerebral ischemic attacks and related syndromes; E11.65 Type 2 diabetes mellitus with hyperglycemia

== ENCOUNTER 2024-02-01 09:00 | Inpatient (IN) ==
[2024-02-01] MEDS ORDERED: NovoLIN R (or HumuLIN R) SUBCUT PRN (11:20)
[2024-02-01] MEDS ORDERED: COLACE CAP 100 MG PO PRN (11:20)
[2024-02-01] MEDS ORDERED: ZADITOR EYE DROPS EACHEYE PRN (11:20)
[2024-02-01] MEDS ORDERED: DESYREL PO PRN (11:20)
[2024-02-01 11:37] VITALS: BMI 27.1
--- NOTE | 2024-02-01 13:16 | PT/OTEVAL ---
PT/OT OBJECTIVES - HISTORY Prescription: PT Consult Diagnosis: Deconditioning s/p CVA Precautions: Fall Risk PMH: Anxiety, Arthritis, DM, Migraines, Headaches, HTN, Sleep Apnea, Cholecystectomy, Hysterectomy, Ortho Sx (B TKR) Prior Level of Function: Independent Other: Per patient report- prior to hospitalization- she lived at home alone in single story home with ramp to enter. Pt states she was independent with all mobility tasks without a device with exception of yardwork which her son was completing. Son and daughter in law reside next door. DME: FWW, Rollator, SPC, BSC History of Present Illness: Pt is a 73 year old female who was initially admitted to [facility] on 01/25/2024 due to L sided weakness and was assessed for possible CVA vs TIA. Pt noted with ongoing weakness and unable to return home alone at [facility] and was transitioned for swing bed therapy on 02/01/2024. - COGNITION Mental Status: Alert, Oriented, Name, Date, Place, Purpose Communication Status: Verbal Ability to Follow Directions: 2 Step Affect: Flat - PAIN No signs of pain Pain Scale: No Pain Comments: No reports of pain at time of evaluation - BED MOBILITY Rolling: Supervision Rolling Comment: With use of side rail Scooting: Minimal - TRANSFERS Supine to Sit: Minimal Sit to Stand: Minimal Sit or Stand Pivot: Minimal Safety (requires cues for:): Hand Placement Precaution - BALANCE Static Sitting: Good Standing: Fair Dynamic Sitting: Good Standing: Poor Balance Comment: Touch to min assist to maintain standing balance. Attempted to remove BUEs from walker to perform reaching tasks and required min assist when reaching outside of AVNI. - NEUROMOTOR/SENSATION Right Lower Ext Sensation: WFL Coordination: WFL Proprioception: WFL Left Lower Ext Sensation: WFL Coordination: WFL Proprioception: WFL Comments: Pt reports tingling sensation initially present in LLE has resolved - HAND DOMINANCE Extremity Function: Hand Dominance: Right - ROM Right LE ROM: WFL Muscle Tone: WFL Left LE ROM: WFL Muscle Tone: WFL - STRENGTH Right LE Strength Number: 4 Other comment: 4-/5 Left LE Strength Number: 3 Other comment: 3+/5 - GAIT Pt. ambulates how many feet?: 100 Amount of Assistance Required: Minimal Type of Assistive Device: Rolling Walker Comments: Cues for upright posture, proper AD approximation & increased step length - OBJECTIVE MEASURES & STANDARDS Objective Measures & Standards: 30 Second Sit to Stand: 0 as pt requires min assist to complete - TREATMENT Date: 02/01/24 Time: 09:15 Treatment Type: Evaluation - TOTAL TREATMENT TIME Total Time: 45 - POST ASSESSMENT Post Assessment Comment: Pt was found supine in bed in room and agreeable to participation in PT services. Pt supervision for rolling R & L in bed with use of siderail. Pt min assist for transition from supine to sitting EOB. Once at EOB, pt able to maintain balance. Pt min assist for functional transfers. Pt ambulatory with FWW for 100ft before fatigue and touch to min assist. Pt cued for upright posture, proper walker approximation and to increase step length and step height to improve gait technique. PT POC and goals discussed with pt with goal to returning back home independently. PT POC and goals also discussed with DETAIL SERGEANT for treatment. Pt would benefit from continued participation in PT to address deficits and facilitate highest level of function and safe discharge planning. - EXIT DISPOSITION Exit Position: CHAIR Call light in reach: Yes PT/OT ASSESSMENT - PT Problem List: Decreased Bed Mobility, Decreased Transfers, Decreased Gait, Decreased Balance, Decreased Safety, Decreased LE Strength, Other - PT GOALS Short Term Goals Days: 10 Mobility: Pt will perform bed mobility tasks with mod I Transfers: Pt will perform functional transfers with mod I Gait: Pt will ambulate 250ft with FWW with SBA Balance: Pt will increase static standing balance to good Actuarial Trainee Goals Days: 20 Mobility: - Transfers: - Gait: Pt will ambulate 300ft without a device with mod I Balance: Pt will increase dynamic standing balance to good ROM/Strength: Pt will increase BLE strength to 5/5 & perform 8 STS transfers in 30seconds - PATIENT GOALS Patient/Family Goals: "I want to get better so I can get home" Goals Discussed with Patient/Family: Yes Rehabilitation Potential: Good to meet stated goals Justification for Potential: Facilitate highest level of function and safe discharge planning. Weakness and Barriers: None - PLAN Suggested Treatment Plan: Bed Mobility Training, Therapeutic Activity, Gait Training, Neuro Re-education, Therapeutic Ex with HEP, Patient Education, Other Other comment: Manual Therapy - FREQUENCY AND DURATION PT: 5-6x per week x 20 days Expected Continuation of Care at Discharge: Home Health
--- NOTE | 2024-02-01 14:18 | PT/OTEVAL ---
PT/OT OBJECTIVES - HISTORY Prescription: OT Consult Diagnosis: Deconditioning s/p CVA Precautions: Fall risk PMH: Arthritis, Anxiety, DM, Migraines, Headaches, HTN, Sleep Apnea, Cholecystectomy, Hysterectomy, Ortho sx (B TKR) Prior Level of Function: Independent Other: Per pt report, Prior to hospitalization she wasliving alone in a single story with a ramp to enter. She states that she is (I) with ADLs, and needs A with IADL (yardwork) which her sons maintains. Son and daughter in-law live next door. DME includes a RW, rollator, SPC, and BSC. History of Present Illness: Pt is a 73 year old femal who was initially admitted to [facility] on 01/25/24 due to L sided weakness and was assessed for possible CVA vs. TIA. Pt noted with ongoing weakness and is unable to return home at [facility] safely. She was transitioned for swing bed therapy on 02/01/24. - COGNITION Mental Status: Alert, Oriented, Name, Date, Place, Purpose Communication Status: Verbal Ability to Follow Directions: 2 Step Memory Loss: None Affect: Flat - PAIN No signs of pain Pain Scale: No Pain Comments: No reports of pain at time of evaluation - BED MOBILITY Rolling: Supervision Rolling Comment: She uses the side rails Bridging: Minimal - TRANSFERS Supine to Sit: Minimal Sit to Stand: Minimal Sit or Stand Pivot: Minimal Toileting: Minimal Safety (requires cues for:): Hand Placement Precaution - ADL'S Grooming: Minimum Upper Body ADL: Minimum Lower Body ADL: Moderate Toileting: Moderate Bathing: Moderate Hygeine: Minimum - BALANCE Static Sitting: Good Standing: Fair Dynamic Sitting: Good Standing: Poor Balance Comment: Touch to min assist to maintain standing balance. Attempted to remove BUEs from walker to perform reaching tasks and required min assist when reaching outside of AVNI. - NEUROMOTOR/SENSATION Right Lower Ext Sensation: WFL Coordination: WFL Proprioception: WFL Left Lower Ext Sensation: WFL Coordination: WFL Proprioception: WFL Comments: Pt reports tingling sensation initially present in LLE has resolved Right Upper Ext Sensation: WFL Coordination: Impaired Left Upper Ext Sensation: Impaired Coordination: Impaired - HAND DOMINANCE Extremity Function: Hand Dominance: Right - ROM Bilateral UE ROM: WFL Left Hand ROM: WFL Right Hand ROM: WFL - STRENGTH Right LE Strength Number: 4 Other comment: 4-/5 Bilateral UE Strength Number: 3 Left Hand Strength Number: 3 Other comment: 3/5 Right Hand Strength Number: 3 Other comment: 3-/5 Left LE Strength Number: 3 Other comment: 3+/5 - OBJECTIVE MEASURES & STANDARDS Objective Measures & Standards: MBI completed this date scoring 47 indicating severe dependency level with ADL self care skills. - TREATMENT Date: 02/01/24 Time: 09:15 Treatment Type: Evaluation Treatment Provided: Other - TOTAL TREATMENT TIME Total Time: 60 - POST ASSESSMENT Post Assessment Comment: Pt was seen for skilled OT to assess CLOF. Pt log rolling in bed with supv A using the side rails. Pt supine to sit with min A and mod VC for hand placement. Pt sat EOB and completed UB dressing with [place] LB dressing with mod A to get over feet and over bottom. STS with min A. Pt functionally AMB to sink with RW and touch A. Completed grooming/oral care standing with min A for gather items and touch A for balance. Pt fatigues easily. Pt functionally AMB ~ 100 feet to another room with touch A and mod VC. Pt would benefit from continued skilled OT services to address ADL deficits and facilitate highest level of ADL self care skills needed for safe d/c planning. - EXIT DISPOSITION Exit Position: CHAIR Call light in reach: Yes PT/OT ASSESSMENT - PT Problem List: Other - OT Problem List: Decreased Mobility ADL's, Decreased Safety Aware, Decreased Dressing, Decreased Bathing, Decreased Grooming, Decreased UE Strength - PT GOALS Short Term Goals Days: 10 Mobility: Pt will perform bed mobility tasks with mod I Transfers: Pt will perform functional transfers with mod I Gait: Pt will ambulate 250ft with FWW with SBA Balance: Pt will increase static standing balance to good Inspector And Unloader Goals Days: 20 Mobility: - Transfers: - Gait: Pt will ambulate 300ft without a device with mod I Balance: Pt will increase dynamic standing balance to good ROM/Strength: Pt will increase BLE strength to 5/5 & perform 8 STS transfers in 30seconds - OT GOALS Inspector And Unloader Goals Days: 20 Mobility for ADL's: Pt to functionally AMB to restroom with supv A and RW. Safety Awareness: Pt to improve safety awareness to G without any VC Dressing: Pt to improve LB dressing to set up A Bathing: Pt to improve overall bathing activity to set up A. Upper Ext. Strength/Use: Pt to improve MMT in BUE by 1 grade. Other: Pt to improve MBI score to 86 indicating mod dependency ADL level. Short Term Goals Days: 10 Mobility for ADL's: Pt to improve functional transfers to supv A and RW Dressing: Pt to improve UB dressing to (I) Bathing: Pt to improve overall bathing activity to supv A. Grooming: Pt to improve grroming and oral care to set up A. Upper Ext. Strength/Use: - - PATIENT GOALS Patient/Family Goals: To feel better and go home. Goals Discussed with Patient/Family: Yes Rehabilitation Potential: Good to meet stated goals. Justification for Potential: To facilitate highest level of ADL function needed for safe d/c planning Weakness and Barriers: None - PLAN Suggested Treatment Plan: Therapeutic Activity, Self Care Training, Neuro Re- education, Therapeutic Ex with HEP, Patient Education, Family Education - FREQUENCY AND DURATION PT: - OT: 5x a week x 20 days Expected Continuation of Care at Discharge: Home Health
[2024-02-01] MEDS ORDERED: SNACK - Diabetic Appropriate PO SCH (20:00)
[2024-02-01] MEDS: WELLBUTRIN IR (PLAIN) PO SCH (21:11)
[2024-02-01] MEDS: COREG TAB 6.25 MG PO SCH (21:11)
[2024-02-01] MEDS: LIPITOR TAB 10 MG PO SCH (21:11)
[2024-02-01] MEDS: SNACK - Diabetic Appropriate PO SCH (21:12)
[2024-02-01] MEDS: MAG-OX TAB PO SCH (21:12)
[2024-02-01] MEDS: REMERON PO SCH (21:14)
[2024-02-02] MEDS ORDERED: LEXAPRO ONE (08:24)
[2024-02-02] MEDS: BENICAR PO SCH (08:30)
[2024-02-02] MEDS: ASPIRIN EC 81 MG PO SCH (08:30)
[2024-02-02] MEDS: NORVASC TAB 10 MG PO SCH (08:31)
[2024-02-02] MEDS: LEXAPRO PO SCH (08:31)
[2024-02-02] MEDS: PLAVIX PO SCH (08:32)
[2024-02-02] MEDS: RHINOCORT ALLERGY NASAL SPRAY ENOSTRIL SCH (08:33)
[2024-02-03] MEDS ORDERED: LEXAPRO ONE (09:07)
[2024-02-04 06:46] LABS: BASOPHILS % (AUTO) 0.3 % (0.2-1.0); EOSINOPHILS # (AUTO) 0.1 x10^3/uL (0.0-0.2); EOSINOPHILS % (AUTO) 1.3 % (0.9-2.9); HEMATOCRIT 30.1 % (36.0-47.0); HEMOGLOBIN 10.3 g/dL (12.0-16.0); LYMPHOCYTES % (AUTO) 36.2 % (21.0-51.0); MEAN CORPUSCULAR HEMOGLOBIN 33.5 pg (27.0-34.0); MEAN CORPUSCULAR HGB CONC 34.2 g/dL (33.0-35.0); MEAN CORPUSCULAR VOLUME 97.9 fL (80.0-100.0); MEAN PLATELET VOLUME 8.6 fL (7.4-11.0); MONOCYTES # (AUTO) 0.6 x10^3/uL (0.3-0.8); MONOCYTES % (AUTO) 7.6 % (0.0-13.0); NEUTROPHILS # (AUTO) 4.5 x10^3/uL (2.2-4.8); NEUTROPHILS % (AUTO) 54.6 % (42.0-75.0); PLATELET COUNT 171 X10^3/uL (150.0-450.0); RED BLOOD COUNT 3.08 X10^6/uL (3.5-5.4); RED CELL DISTRIBUTION WIDTH 14.7 % (11.6-16.5); WHITE BLOOD COUNT 8.2 X10^3/uL (3.6-10.0)
[2024-02-04 06:50] LABS: ALBUMIN 3.2 g/dL (3.4-5.0); CALCIUM 8.9 mg/dL (8.5-10.1); CARBON DIOXIDE 29.9 mmol/L (21-32); COR CA(FOR HYPOALB) 9.5 mg/dL (8.5-10.1); CREATININE 1.3 mg/dL (0.55-1.02); TOTAL PROTEIN 6.4 g/dL (6.4-8.2)
[2024-02-04] MEDS ORDERED: LEXAPRO ONE (08:14)
[2024-02-04] MEDS ORDERED: WELLBUTRIN SR 150 MG (BID) PO SCH (09:00)
[2024-02-04] MEDS ORDERED: PLAQUENIL PO SCH (09:00)
[2024-02-04] MEDS ORDERED: BENICAR PO SCH (09:00)
[2024-02-04] MEDS: PROTONIX TAB 40 MG PO SCH (10:15)
[2024-02-04] MEDS: KEPPRA TAB 500 MG PO SCH (10:15)
[2024-02-04] MEDS: SEMAGLUTIDE 14 MG PO SCH (11:06)
[2024-02-04] MEDS: PATIENT'S HOME MEDICATION PO SCH (11:07)
[2024-02-04] MEDS: FARXIGA PO SCH (11:40)
[2024-02-04] MEDS: WELLBUTRIN IR (PLAIN) PO SCH (12:37)
[2024-02-04] MEDS ORDERED: LEXAPRO PO SCH (21:00)
[2024-02-04] MEDS ORDERED: REMERON PO SCH (21:00)
[2024-02-04] MEDS ORDERED: LIPITOR TAB 10 MG PO SCH (21:00)
--- NOTE | 2024-02-04 21:49 | PCM.PROG ---
Progress Note Progress Note for Day of Date of Exam: 02/04/24 Subjective Subjective: The patient is alert and awake and sitting up in the chair this morning. She states she is doing much better and is ambulating without too much assistance at this time. Her left lower leg pain is much improved and she is actually able to ambulate on her own without assistance now. Will continue physical therapy while the patient is here in the swing bed and when she is done we will plan on discharging her home. No change to treatment at this time. Past Medical Family Social History Allergies: Allergies levofloxacin [From Levaquin] Allergy (Unknown, Verified 08/07/22 08:58) meperidine [From Demerol] Adverse Reaction (Mild, Verified 08/07/22 08:58) NAUSEA Review of Systems ROS: No change since H&P Vital Signs and I&O's Intake and Output: Intake & Output 02/02/24 02/03/24 02/04/24 02/05/24 11:59 11:59 11:59 11:59 Intake Total 4097 / 4097 1030 / 1030 120 / 120 0 / 0 Output Total 800 / 800 Balance 3297 / 3297 1030 / 1030 120 / 120 0 / 0 Physical Exam Oriented: Normal Eyes: Normal Ear: Normal Nose: Normal Throat: Normal Respiratory: Normal Cardiovascular: Normal Auscultation: Bowel Sounds: Normal Tenderness: Normal Skin: Normal Musculoskeletal: Normal Mood Description: Calm Affect: Normal Speech Pattern: Clear and Appropriate Laboratory and Diagnostics 02/04/24 05:52 02/04/24 05:52 Labs: Laboratory WBC 8.2 X10^3/uL (3.6-10.0) 02/04/24 05:52 RBC 3.08 X10^6/uL (3.5-5.4) L 02/04/24 05:52 Hgb 10.3 g/dL (12.0-16.0) L 02/04/24 05:52 Hct 30.1 % (36.0-47.0) L 02/04/24 05:52 MCV 97.9 fL (80.0-100.0) 02/04/24 05:52 MCH 33.5 pg (27.0-34.0) 02/04/24 05:52 MCHC 34.2 g/dL (33.0-35.0) 02/04/24 05:52 RDW 14.7 % (11.6-16.5) 02/04/24 05:52 Plt Count 171 X10^3/uL (150.0-450.0) 02/04/24 05:52 MPV 8.6 fL (7.4-11.0) 02/04/24 05:52 Neut % (Auto) 54.6 % (42.0-75.0) 02/04/24 05:52 Lymph % (Auto) 36.2 % (21.0-51.0) 02/04/24 05:52 [place] % (Auto) 7.6 % (0.0-13.0) 02/04/24 05:52 Eos % (Auto) 1.3 % (0.9-2.9) 02/04/24 05:52 Baso % (Auto) 0.3 % (0.2-1.0) 02/04/24 05:52 Neut # (Auto) 4.5 x10^3/uL (2.2-4.8) 02/04/24 05:52 Lymph # (Auto) 3.0 X10^3/uL (1.3-2.9) H 02/04/24 05:52 [place] # (Auto) 0.6 x10^3/uL (0.3-0.8) 02/04/24 05:52 Eos # (Auto) 0.1 x10^3/uL (0.0-0.2) 02/04/24 05:52 Baso # (Auto) 0.0 X10^3/uL (0.0-0.1) 02/04/24 05:52 Absolute Nucleated RBC 0.0 /100WBC 02/04/24 05:52 Sodium 143 mmol/L (136-145) 02/04/24 05:52 Corrected Sodium 144 mmol/L (136-145) 02/04/24 05:52 Potassium 4.0 mmol/L (3.5-5.1) 02/04/24 05:52 Chloride 108 mmol/L (98-107) H 02/04/24 05:52 Carbon Dioxide 29.9 mmol/L (21-32) 02/04/24 05:52 BUN 21 mg/dL (7-18) H 02/04/24 05:52 Creatinine 1.30 mg/dL (0.55-1.02) H 02/04/24 05:52 Est GFR (MDRD) Af Amer 52 (>60) L 02/04/24 05:52 Est GFR (MDRD) Non-Af 43 (>60) L 02/04/24 05:52 Glucose 130 mg/dL (65-99) H 02/04/24 05:52 Calcium 8.9 mg/dL (8.5-10.1) 02/04/24 05:52 Corrected Calcium 9.5 mg/dL (8.5-10.1) 02/04/24 05:52 Total Bilirubin 0.30 mg/dL (0.2-1.0) 02/04/24 05:52 AST 72 Units/L (15-37) H 02/04/24 05:52 ALT 73 Units/L (12-78) 02/04/24 05:52 Alkaline Phosphatase 264 Units/L (46-116) H 02/04/24 05:52 Total Protein 6.4 g/dL (6.4-8.2) 02/04/24 05:52 Albumin 3.2 g/dL (3.4-5.0) L 02/04/24 05:52 Globulin 3.2 g/dL (2.5-4.5) 02/04/24 05:52 Albumin/Globulin Ratio 1.0 Ratio (1.1-2.1) L 02/04/24 05:52 Plan (1) Weakness of left lower extremity: Status: Acute Plan: Continue physical therapy and we will plan on discharging patient home at the end of her swing bed status (2) Brain TIA: Status: Acute Plan: Continue Plavix, blood pressure control and statin therapy at this time (3) Chronic kidney disease, stage 3b: Status: Acute Plan: Stable, no changes.
[2024-02-05] MEDS: LEXAPRO ONE (09:53)
[2024-02-06] MEDS: LEXAPRO ONE (10:06)
[2024-02-07 05:06] LABS: BASOPHILS % (AUTO) 0.2 % (0.2-1.0); EOSINOPHILS # (AUTO) 0.1 x10^3/uL (0.0-0.2); EOSINOPHILS % (AUTO) 1.3 % (0.9-2.9); HEMATOCRIT 28.7 % (36.0-47.0); HEMOGLOBIN 9.6 g/dL (12.0-16.0); LYMPHOCYTES # (AUTO) 2.5 X10^3/uL (1.3-2.9); LYMPHOCYTES % (AUTO) 36.5 % (21.0-51.0); MEAN CORPUSCULAR HEMOGLOBIN 33.4 pg (27.0-34.0); MEAN CORPUSCULAR HGB CONC 33.6 g/dL (33.0-35.0); MEAN CORPUSCULAR VOLUME 99.4 fL (80.0-100.0); MONOCYTES # (AUTO) 0.4 x10^3/uL (0.3-0.8); MONOCYTES % (AUTO) 6.2 % (0.0-13.0); NEUTROPHILS # (AUTO) 3.8 x10^3/uL (2.2-4.8); NEUTROPHILS % (AUTO) 55.8 % (42.0-75.0); PLATELET COUNT 161 X10^3/uL (150.0-450.0); RED BLOOD COUNT 2.88 X10^6/uL (3.5-5.4); RED CELL DISTRIBUTION WIDTH 14.4 % (11.6-16.5); WHITE BLOOD COUNT 6.8 X10^3/uL (3.6-10.0)
[2024-02-07 05:26] LABS: ALBUMIN 2.8 g/dL (3.4-5.0); CALCIUM 8.6 mg/dL (8.5-10.1); CARBON DIOXIDE 32.2 mmol/L (21-32); COR CA(FOR HYPOALB) 9.6 mg/dL (8.5-10.1); CREATININE 1.5 mg/dL (0.55-1.02); POTASSIUM 4.1 mmol/L (3.5-5.1); TOTAL PROTEIN 6.1 g/dL (6.4-8.2)
[2024-02-07] MEDS ORDERED: LEXAPRO ONE (10:06)
--- NOTE | 2024-02-07 12:09 | PCM.PROG ---
Progress Note Progress Note for Day of Date of Exam: 02/07/24 Subjective Subjective: Patient seen at bedside, no acute events. She is currently admitted as swing bed for physical therapy. She has been ambulating with a walker. Her leg pain has improved. She reports eating and drinking well. Labs reviewed -Hgb 9.6 BUN/Cr:36/1.50 Plan: continue current treatment. Continue PT as tolerated. Advised patient to drink more fluids. Will repeat labs in the AM. Continue home medications. Past Medical Family Social History Allergies: Allergies levofloxacin [From Levaquin] Allergy (Unknown, Verified 08/07/22 08:58) meperidine [From Demerol] Adverse Reaction (Mild, Verified 08/07/22 08:58) NAUSEA Review of Systems ROS: No change since H&P Vital Signs and I&O's Intake and Output: Intake & Output 02/04/24 02/05/24 02/06/24 02/07/24 23:59 23:59 23:59 23:59 Intake Total 0 / 0 1440 / 1440 1600 / 1600 480 / 480 Balance 0 / 0 1440 / 1440 1600 / 1600 480 / 480 Physical Exam Oriented: Normal Eyes: Normal Ear: Normal Nose: Normal Throat: Normal Respiratory: Normal Cardiovascular: Normal Auscultation: Bowel Sounds: Normal Tenderness: Normal Skin: Normal Musculoskeletal: Normal Psychiatric: Normal Mood Description: Calm Affect: Normal Speech Pattern: Clear and Appropriate Laboratory and Diagnostics 02/07/24 04:31 02/07/24 04:31 Labs: Laboratory WBC 6.8 X10^3/uL (3.6-10.0) 02/07/24 04:31 RBC 2.88 X10^6/uL (3.5-5.4) L 02/07/24 04:31 Hgb 9.6 g/dL (12.0-16.0) L 02/07/24 04:31 Hct 28.7 % (36.0-47.0) L 02/07/24 04:31 MCV 99.4 fL (80.0-100.0) 02/07/24 04:31 MCH 33.4 pg (27.0-34.0) 02/07/24 04:31 MCHC 33.6 g/dL (33.0-35.0) 02/07/24 04:31 RDW 14.4 % (11.6-16.5) 02/07/24 04:31 Plt Count 161 X10^3/uL (150.0-450.0) 02/07/24 04:31 MPV 9.0 fL (7.4-11.0) 02/07/24 04:31 Neut % (Auto) 55.8 % (42.0-75.0) 02/07/24 04:31 Lymph % (Auto) 36.5 % (21.0-51.0) 02/07/24 04:31 [place] % (Auto) 6.2 % (0.0-13.0) 02/07/24 04:31 Eos % (Auto) 1.3 % (0.9-2.9) 02/07/24 04:31 Baso % (Auto) 0.2 % (0.2-1.0) 02/07/24 04:31 Neut # (Auto) 3.8 x10^3/uL (2.2-4.8) 02/07/24 04:31 Lymph # (Auto) 2.5 X10^3/uL (1.3-2.9) 02/07/24 04:31 [place] # (Auto) 0.4 x10^3/uL (0.3-0.8) 02/07/24 04:31 Eos # (Auto) 0.1 x10^3/uL (0.0-0.2) 02/07/24 04:31 Baso # (Auto) 0.0 X10^3/uL (0.0-0.1) 02/07/24 04:31 Absolute Nucleated RBC 0.0 /100WBC 02/07/24 04:31 Sodium 145 mmol/L (136-145) 02/07/24 04:31 Corrected Sodium 146 mmol/L (136-145) H 02/07/24 04:31 Potassium 4.1 mmol/L (3.5-5.1) 02/07/24 04:31 Chloride 109 mmol/L (98-107) H 02/07/24 04:31 Carbon Dioxide 32.2 mmol/L (21-32) H 02/07/24 04:31 BUN 36 mg/dL (7-18) H 02/07/24 04:31 Creatinine 1.50 mg/dL (0.55-1.02) H 02/07/24 04:31 Est GFR (MDRD) Af Amer 44 (>60) L 02/07/24 04:31 Est GFR (MDRD) Non-Af 36 (>60) L 02/07/24 04:31 Glucose 152 mg/dL (65-99) H 02/07/24 04:31 Calcium 8.6 mg/dL (8.5-10.1) 02/07/24 04:31 Corrected Calcium 9.6 mg/dL (8.5-10.1) 02/07/24 04:31 Total Bilirubin 0.30 mg/dL (0.2-1.0) 02/07/24 04:31 AST 80 Units/L (15-37) H 02/07/24 04:31 ALT 91 Units/L (12-78) H 02/07/24 04:31 Alkaline Phosphatase 284 Units/L (46-116) H 02/07/24 04:31 Total Protein 6.1 g/dL (6.4-8.2) L 02/07/24 04:31 Albumin 2.8 g/dL (3.4-5.0) L 02/07/24 04:31 Globulin 3.3 g/dL (2.5-4.5) 02/07/24 04:31 Albumin/Globulin Ratio 0.8 Ratio (1.1-2.1) L 02/07/24 04:31 Plan (1) Weakness of left lower extremity: Status: Acute Plan: Continue physical therapy and we will plan on discharging patient home at the end of her swing bed status (2) Brain TIA: Status: Acute Plan: Continue Plavix, blood pressure control and statin therapy at this time (3) Chronic kidney disease, stage 3b: Status: Acute Plan: Stable, no changes.
[2024-02-07 20:21] VITALS: O2SAT 98
[2024-02-08 05:13] LABS: CARBON DIOXIDE 32.8 mmol/L (21-32); CREATININE 1.65 mg/dL (0.55-1.02); POTASSIUM 4.5 mmol/L (3.5-5.1)
[2024-02-08] MEDS ORDERED: LEXAPRO ONE (08:58)
[2024-02-08 12:49] VITALS: BP 130/60; PULSE 73; RESP 18; TEMP 97.3
[2024-02-08] MEDS ORDERED: NS 250 ML IV 250 ML IV ONE (15:29)
== END 2024-02-08 16:40 | disposition home health service (06) | DRG 69 ==
LOC: MED/SURG 09:00
PROVIDERS: ADMIT Family Medicine; ATTEND Family Medicine
DX: Z66 Do not resuscitate; K21.9 Gastro-esophageal reflux disease without esophagitis; Z98.890 Other specified postprocedural states; R29.898 Other symptoms and signs involving the musculoskeletal system; M25.551 Pain in right hip; G45.8 Other transient cerebral ischemic attacks and related syndromes; N18.32 Chronic kidney disease, stage 3b; E78.5 Hyperlipidemia, unspecified; M97.01XA Periprosthetic fracture around internal prosthetic right hip joint, initial encounter; I69.354 Hemiplegia and hemiparesis following cerebral infarction affecting left non-dominant side; I12.9 Hypertensive chronic kidney disease with stage 1 through stage 4 chronic kidney disease, or unspecified chronic kidney disease; Z51.89 Encounter for other specified aftercare